=== PATIENT | female | born 1950 | race Two or more races ===

== ENCOUNTER 2016-07-02 15:45 | Inpatient (IN) | payer MEDICAID ==
[~2016-07-02] VITALS: Ht 152.4 cm; Wt 67.2 kg
--- NOTE | ~2016-07-02 | HP ---
PATIENT'S NAME: [facility] AGE: 65 Y [address] ROOM: [place] [address] LOCATION: GPCU ADMIT DATE: 07/02/2016 History & Physical DISCHARGE DATE: FAMILY PHYSICIAN: JOSSIE CURTIS ATTENDING PHYSICIAN: PENNY LACEY DATE OF SERVICE: CHIEF COMPLAINT: Abnormal blood work. HISTORY OF PRESENT ILLNESS: This is a 65-year-old Ecuadorean female who came into the [facility] 2 weeks ago and was taken into [facility] to visit with a doctor even though the patient says she did not have any complaint prior to going into see the doctor and blood work which was done there revealed an abnormal renal panel. Based on this, the patient was transferred to Dr. Curtis the transport medic to see the patient at the outside clinic. After the patient was seen at the outside clinic and a repeat renal panel was done, which she was told shows CKD stage 4. The patient said that doctors in [place] had told her 3 years ago that she had chronic kidney problem and she was placed on some medications for that. The patient denies any medical complaints or problems prior to going into the [facility] for blood work. Right now, she denies fever, denies nausea or vomiting, denies any confusion, denies any dizziness, headache, neck pain, or back pain. She denies urinary symptoms. Denies diarrhea. She reports that she urinates pretty regularly with good volume of urine. She denied any fall at home. REVIEW OF SYSTEMS: The 13 elements of review of systems were asked and as documented in the HPI. The others are negative. PAST MEDICAL HISTORY: Includes CKD of unknown stage, essential hypertension. PAST SURGICAL HISTORY: Includes hernia repair. SOCIAL HISTORY: She denies history of smoking. Denies use of alcohol. FAMILY HISTORY: She reports that she does not remember at what age her parents . PHYSICAL EXAMINATION: PATIENT'S NAME: [facility] AGE: 65 Y [address] ROOM: [place] [address] LOCATION: GPCU ADMIT DATE: 07/02/2016 History & Physical DISCHARGE DATE: FAMILY PHYSICIAN: JOSSIE CURTIS ATTENDING PHYSICIAN: PENNY LACEY VITAL SIGNS: In PCU, temperature 98.2, pulse 80, respiratory rate 16, oxygen saturation 98% on room air, and blood pressure 163/77. GENERAL: The patient is alert, awake, and oriented x3. Looks pretty good. Does not look like somebody that has a very, very abnormal renal panel. There are no flapping tremors. Pleasant. NEUROLOGIC: Cranial nerves 2 through 12 are intact bilaterally. Sensory is intact bilaterally. Power is 5/5 in all the extremities. HEENT: Normocephalic, atraumatic. Pupils equal and reactive to light bilaterally. Pharynx is normal. Mucosa is moist. NECK: Supple. No area of tenderness. No lymphadenopathy. EARS: No obvious ear discharge or drainage. CARDIOVASCULAR: Normal S1 and S2. Regular rate and rhythm. CHEST: Clear to auscultation bilaterally. ABDOMEN: Soft, nondistended. No area of tenderness. No palpable organomegaly. EXTREMITIES: There is no joint swelling, erythema, or tenderness. SKIN: No rash or skin breakdown. LABORATORY DATA: Labs which was repeated today in the Renal Clinic, sodium 143, potassium 6.2, chloride 115, CO2 15, calcium 7.4, creatinine 9.0, BUN 105, glucose 105, albumin 2.9, and phosphorus 6.4. ASSESSMENT AND PLAN: This is a 65-year-old female who comes in with abnormal renal panel. 1. Chronic kidney disease, stage 4. Management per Renal team, the patient is going to be on bicarb and on Kayexalate, renal panel every 6 hours, to check the note and the order of plan which was done by Dr. Curtis. Please note, present on admission. 2. Hyperkalemia, present on admission. The patient is going to get Kayexalate and also is going to get some insulin and calcium gluconate. Present on admission. 3. High anion gap metabolic acidosis, secondary to chronic kidney disease, stage 4. The patient is going to be on bicarb drip. Present on admission. 4. Essential hypertension, stable. We will start the patient on some Norvasc. Line of management was explained to the patient through her granddaughter who speaks Nauruan and she had no questions at this time. PENNY LACEY MD PATIENT'S NAME: [facility] AGE: 65 Y [address] ROOM: [place] [address] LOCATION: [facility] ADMIT DATE: 07/02/2016 History & Physical DISCHARGE DATE: FAMILY PHYSICIAN: JOSSIE CURTIS ATTENDING PHYSICIAN: PENNY LACEY/brook /[id number] D: [id number] T: [id number] HISTORY & PHYSICAL
--- NOTE | ~2016-07-02 | DS ---
PATIENT'S NAME: [facility] AGE: 65 Y [address] ROOM: [id number] [place] [address] LOCATION: GPCU ADMIT DATE: 07/02/2016 Discharge Summary DISCHARGE DATE: 07/08/2016 FAMILY PHYSICIAN: JOSSIE NAILS ATTENDING PHYSICIAN: Duy Merrill PRIMARY DIAGNOSES: 1. Chronic kidney disease, stage IV. 2. Hyperkalemia. 3. Hyperphosphatemia. 4. Essential hypertension. PRINCIPAL PROCEDURE: Done for the patient includes a right internal jugular tunneled dialysis catheter placement by Radiology. LABORATORY DATA: On admission, sodium was 143, prior to discharge was 134; creatinine on admission was 9.2, prior to discharge was 4.6; BUN on admission was 105, prior to discharge was 32; glucose was 105; potassium on admission was 6.2, prior to discharge was 4.3; bicarb on admission was 15, prior to discharge was 24; and phosphorus on admission was 6.4, prior to discharge was 4.3. Magnesium was 2. INR was 1. UA: Leukocytes 25, nitrite negative, and wbc 0-2. Ionized calcium 3.4. RADIOLOGY: Ultrasound of the kidneys reports that chronic renal cortical atrophy and cholelithiasis. HOSPITAL COURSE: For history of present illness, please take a look at H and P which was done by Dr. Merrill. The patient was admitted to Progressive Care Unit, was essentially managed by the Renal team. The patient was put on bicarb drip, was observed to see if there will be significant improvement in the kidney function. However, after waiting for about for 4 days without much significant improvement in the kidney function, she ultimately went on to get a tunneled dialysis catheter placed and subsequently started dialysis. She had 3 dialysis sessions prior to discharge. Throughout the whole hospital stay, respiratory status was stable. She basically looked clinically good, better than what her renal function appeared to be on her blood work. Had no acute medical condition throughout her whole hospital stay. hotel office manager had touched base with [facility] regarding Medicaid approval and apparently the patient was a permanent resident of the [facility] and so had a social security number, so currently her Medicaid has been applied for and everything has been set up as per followup, passed to the family following up on the eventual approval of the Medicaid. On the day of discharge, the patient was in stable clinical condition, vital signs were stable, and she was discharged home. DISCHARGE INSTRUCTIONS: She is to follow up with her PCP in [place] and she PATIENT'S NAME: [facility] AGE: 65 Y [address] ROOM: [place] [address] LOCATION: GPCU ADMIT DATE: 07/02/2016 Discharge Summary DISCHARGE DATE: 07/08/2016 FAMILY PHYSICIAN: JOSSIE NAILS ATTENDING PHYSICIAN: Duy Merrill is to follow with the Renal Team in the clinic. Renal is to decide whether the patient will require a long-term hemodialysis. MEDICATIONS ON DISCHARGE: 1. Norvasc 10 mg p.o. daily, dose change. 2. PhosLo 667 mg p.o. 3 times daily. 3. Lopressor 12.5 mg p.o. twice daily, new medication. 4. Prilosec 20 mg p.o. q.h.s. MD DEANDRE PRAKASH/tapanl /[id number] d: 07/08/16 2149 t: 07/11/16 1630, DISCHARGE SUMMARY
[2016-07-02 16:36] LABS: ALBUMIN 2.9 gm/dL (3.5-5.0); PHOSPHORUS 6.4 mg/dL (2.5-4.9)
[2016-07-02 16:39] LABS: ANION GAP 19.2 (10.0-19.0); CALCIUM 7.4 mg/dL (8.5-10.5)
[2016-07-02 16:40] LABS: POTASSIUM 6.2 mEq/L (3.7-5.1)
[2016-07-02] MEDS ORDERED: [UNRECOGNIZED DRUG - OTHER] PO ×2 (18:29→18:30)
[2016-07-02] MEDS ORDERED: AMLODIPINE-OLM1 EAC2 PO (18:31)
[2016-07-02] MEDS ORDERED: VITAMIN IM (18:33)
[2016-07-02] MEDS ORDERED: PRILOSEC20 MG PO (19:03)
--- NOTE | 2016-07-02 19:37 | NUR ---
65 Y/O FEMALE ADMITTED FOR HYPERKALEMIA & STAGE IV RENAL FAILURE. PT JUST CAME FROM [place] 2 WEEKS AGO. FAMILY STATES THAT SINCE SHE HAS BEEN HERE SHE HAS C/O ALWAYS BEING OR FEELING COLD. PT DENIES ANY SOB OR CHEST PAIN. PT IS A&OX3, AMBULATES WELL. ALLERGIES - NO KNOWN MEDICATION ALLERGIES MEDICAL & SURGICAL HISTORY - UMBELICAL HERNIA REPAIR. HYPERTENSION, JOINT STIFFNESS & ARTHRITIS, GERD, HEARTBURN, HEMORRHOIDS, URINARY FREQUENCY & NOCTURIA, DEPRESSION SINCE HER A FEW YEARS AGO. ANEMIA. PT IS A NON SMOKER & NON DRINKER. PT FAMILY IS VERY SUPPORTIVE & BEDSIDE REPORT GIVEN TO PT PRIMARY CARE NURSE DON RN ADM EDUCATION COMPLETED WITH PT AND FAMILY
[2016-07-02 22:35] LABS: ALBUMIN 2.4 gm/dL (3.5-5.0); CALCIUM 7.6 mg/dL (8.5-10.5); PHOSPHORUS 5.7 mg/dL (2.5-4.9)
[2016-07-02 22:41] LABS: CREATININE 8.7 mg/dL (0.5-1.1)
--- NOTE | 2016-07-03 05:08 | NUR ---
A/O. VIETNAMESE SPEAKING ONLY. HR 60-80s. SBP 160-170s. AFEBRILE. ROOM AIR. KAYEXCELATE GIVEN WITH RESULTS. D50 AND 10UNIT INSULIN GIVEN. 2GM CA GLUCONATE GIVEN. BICARB 1L BOLUS GIVEN CONTINOUS RATE OF 125ML/HR. K+ AT 2200 5.0. ARELLANO INSERTED WITH 900ML UOP. UP TO BATHROOM SBA. DENIES PAIN.
[2016-07-03 05:52] LABS: BASOPHIL # 0.1 K/uL (0.0-0.2); BASOPHIL % 0.7 %; EOSINOPHIL # 0.1 K/uL (0.0-0.5); EOSINOPHIL % 1.6 %; HEMATOCRIT 31.9 % (33.0-46.0); HEMOGLOBIN 10.5 g/dL (10.0-15.0); IMMATURE GRANULOCYTE % 0.4 %; LYMPHOCYTE # 1.3 K/uL (0.8-4.0); LYMPHOCYTE % 18.3 %; MCH 30.7 pg (27.0-34.0); MCHC 32.9 gm/dL (32.0-36.5); MCV 93.3 fl (83.0-98.0); MONOCYTE # 0.6 K/uL (0.0-1.0); MONOCYTE % 9.1 %; NEUTROPHIL # (ANC) 4.9 K/uL (1.8-7.8); NEUTROPHIL % 69.9 %; NRBC % 0 /100WBC (0-0.00); PLATELET COUNT 208 K/uL (150-450); RBC 3.42 M/uL (3.50-5.50); RDW-CV 15.1 % (11.9-14.6); WBC 7.1 K/uL (4.0-11.0)
[2016-07-03 06:07] LABS: ALBUMIN 2.2 gm/dL (3.5-5.0); ANION GAP 13.3 (10.0-19.0); PHOSPHORUS 6.1 mg/dL (2.5-4.9); POTASSIUM 4.3 mMol/L (3.7-5.1)
[2016-07-03 06:10] LABS: CALCIUM 7.1 mg/dL (8.5-10.5); CREATININE 8.2 mg/dL (0.5-1.1)
[2016-07-03 11:47] LABS: BILIRUBIN URINE NEGATIVE (NEGATIVE); BLOOD URINE 10 /UL (NEGATIVE); COLOR URINE STRAW (YELLOW); GLUCOSE URINE 100 mg/dL (NEGATIVE); KETONE URINE NEGATIVE (NEGATIVE); LEUKOCYTES URINE 25 /UL (NEGATIVE); NITRITE URINE NEGATIVE (NEGATIVE); PROTEIN URINE 100 mg/dL (NEGATIVE); TURBIDITY URINE CLEAR (CLEAR); UROBILINOGEN URINE NORMAL (NORMAL)
[2016-07-03 11:54] LABS: WBC URINE 0-2 #/HPF (NEGATIVE)
[2016-07-03 11:55] LABS: BACTERIA URINE NEGATIVE (NEGATIVE); EPITHELIAL URINE RARE #/HPF (NEGATIVE)
--- NOTE | 2016-07-03 16:04 | NUR ---
Significant Event: VSS AND RA. TYLENOL X1 THIS AM FOR DIEGO, WITH RELIEF. NA BICARB GTT D/C'D AND NACL RUNNING AT 50 MLS/HR X1 LITER THEN SALINE LOCK. Q6H RENAL PANELS D/C'D AND TO CHECK DAILY. ARELLANO PATENT WITH 1400 MLS UOP, HAD 1 BM. URINE SENT FOR LABS PER DR. NAILS. MANY FAMILY AT BEDSIDE AND ASSIST WITH TRANSLATION. REPOSITIONS SELF FREQUENTLY. Follow up: CONTINUE PLAN OF CARE; MONITOR RENAL LABS.
--- NOTE | 2016-07-04 03:52 | NUR ---
Significant Event: VSS on RA. Afebrile. SBP's 103's-150's. HR's in 60-80's. No complaints of pain. IV to L) forearm with NaCl running at 50 mls/hr x1 then SL. Bright patent with 1000 ml UOP. Speaks no Citizen Of [place]. Family at bedside to assist with translation. Repositions self frequently. 1 BM this shift. Follow up: Watching creatinine for next 2 days then consulting for dialysis.
[2016-07-04 06:55] LABS: ALBUMIN 2.1 gm/dL (3.5-5.0); POTASSIUM 4.4 mMol/L (3.7-5.1)
[2016-07-04 06:57] LABS: ANION GAP 15.4 (10.0-19.0); CALCIUM 6.6 mg/dL (8.5-10.5)
--- NOTE | 2016-07-04 16:46 | NUR ---
Significant Event: VSS AND RA. AFEBRILE. DENIES PAIN. ARELLANO D/C'D AT 1130 WITH 700 MLS UOP AND HAS VOIDED X1 THIS AFTERNOON FOR 150 MLS POST ARELLANO REMOVAL. 1 REPORTED BM. UP TO SHOWER AND SITS AT EDGE OF BED. FAMILY ASSIST WITH TRANSLATION AND CARES; PO INTAKE ENCOURAGED-STARTED ENSURE TID WITH MEALS; FAMILY STATES THAT SHE IS A PICKY EATER AND THEY BROUGHT IN SOME FOOD FOR HER. AMBULATES WITH 1A, UNSTEADY. Follow up: CONTINUE PLAN OF CARE; INCREASE ACTIVITY.
[2016-07-05 03:52] LABS: BASOPHIL # 0.1 K/uL (0.0-0.2); BASOPHIL % 0.5 %; EOSINOPHIL # 0.2 K/uL (0.0-0.5); EOSINOPHIL % 1.7 %; HEMOGLOBIN 10.9 g/dL (10.0-15.0); IMMATURE GRANULOCYTE % 0.3 %; LYMPHOCYTE # 1.1 K/uL (0.8-4.0); MCH 30.8 pg (27.0-34.0); MCHC 32.1 gm/dL (32.0-36.5); MONOCYTE # 0.8 K/uL (0.0-1.0); MONOCYTE % 8.1 %; MPV 9.3 fl (9.4-12.4); NEUTROPHIL # (ANC) 7.3 K/uL (1.8-7.8); NEUTROPHIL % 77.4 %; NRBC % 0 /100WBC (0-0.00); PLATELET COUNT 205 K/uL (150-450); RBC 3.54 M/uL (3.50-5.50); RDW-CV 14.7 % (11.9-14.6); WBC 9.4 K/uL (4.0-11.0)
--- NOTE | 2016-07-05 03:54 | NUR ---
Significant Event: Patient speaks no Guinean. Family at bedside to translate. VSS on RA. Afebrile. SBP's in 130-140's. Complaints of pain to R) great toe. Tylenol at 1900 and 0230 with relief. Ambulates with 1A. IV to L) forearm SL and flushes well. 650ml UOP. Repositions self frequently. Follow up: Possibly discharge home today based on creatinine.
[2016-07-05 04:05] LABS: ALBUMIN 2.2 gm/dL (3.5-5.0); ANION GAP 16.4 (10.0-19.0); PHOSPHORUS 5.1 mg/dL (2.5-4.9); POTASSIUM 4.4 mMol/L (3.7-5.1)
[2016-07-05 04:06] LABS: CALCIUM 6.6 mg/dL (8.5-10.5); CREATININE 7.9 mg/dL (0.5-1.1)
[2016-07-05 11:49] LABS: INR - (THERAPEUTIC) 1.02 (0.92-1.07); PROTIME 10.7 SECONDS (9.8-11.4)
--- NOTE | 2016-07-05 13:38 | NUR ---
Reviewed pt chart and spoke with Shayna Jerry APRN before talking with patient and 2 sons at bedside. Lives in [place] with son. Per H&P they reported has been visiting for 2 weeks, Shayna told me they told her has lived here 15 years. At some point needing dialysis. Explained to them that if not a [place] resident, then will not be able to get insurance to qualify for outpt dialysis and no outpt dialysis center will accept her for dialysis in [place], or that we are aware of in the [place] so will need to go back to country where she is a citizen to get dialysis. Son reports she has lived here for 15 years and has a social security number and that there is a community health nurse supervisor who is helping her and says she will qualify for Medicare or Medicaid and that she helped pt apply for Medicaid. Gave me social security number [phone] and 1950. Said I can call community health nurse supervisor to get more information and I made copy of her card, is Elvia Calderon, Migrant Education Band Aid Machine Operator [phone] or [phone]. Called and left her a message to call me back. I called Marion with [facility] [address] and discussed with her, she ran social security number in Medicaid system and says Medicaid pending. Says that is no guarantee Medicaid will be approved. Says you have to be a resident for 5 years before you qualify for Medicaid so would have to see resident card to know when became a resident. Asked her what we can do to expidite this to speed up the process as pt is going to need dialysis. She is going to check and see if they can call directly to see what is needed next or if she will have to get a consent form from patient to call and call me back. She said likely next step will be they have to get income information back to Medicaid but not sure if Medicaid has requested that or not. Told her these people are going to need direction to get through the system and we need to help them. Will follow.
--- NOTE | 2016-07-05 17:05 | NUR ---
Significant events: Patient is alert and oriented x 3. VSS. Heart rates 69-81. SBP's 136-149. Denies pain. Denies shortness of breath. Good appetite. Lungs clear and diminished on room air. Left arm forearm IV saline locked. Spoke with care management today, family interprets and use of MILAN Total intake of 720 mL; total output of 350 mL + 1 moderate unmeasurable void. BM x 1 today. Follow up: NPO after midnight for line placement in AM. Hold heparin tonight and tomorrow until after line placed. Accurate I & O's.
--- NOTE | 2016-07-06 03:16 | NUR ---
Significant Event: Patient speaks no Angolan. Family at bedside to translate. VSS on RA. SBP's in 130-140's. Afebrile. No complaints of pain this shift. Ambulates with SBA. NPO since midnight for hemodialysis line placement today. Care management involved in case. IV to L) inner forearm is SL. Follow up: Hemodialysis line placement today at 11am.
[2016-07-06 06:05] LABS: ANION GAP 15.6 (10.0-19.0); POTASSIUM 4.6 mMol/L (3.7-5.1)
[2016-07-06 06:06] LABS: CALCIUM 7.1 mg/dL (8.5-10.5)
--- NOTE | 2016-07-06 14:26 | NUR ---
Talked with Aditi in the [facility] office re:patients Medicaid status. She tells me that she did talk with the Liaison and they are waiting on Fallon's son's income and pay stubs in order to complete the Medicaid application. Tamia was going to keep following up on the status of that. I also ran into Shayna Oden in the hallway and updated her to this as well. CM to continue to follow and assist.
--- NOTE | 2016-07-06 16:21 | NUR ---
Significant Event: pt went for dialysis tunnelled line placement this am and then went to dialysis after for 2hrs, had 1liter off. Pt to have dialysis again in am for 3hrs at 8am. Pt feels ok after today, tylenol for sore of line r) chest. Pt granddaughter here with her. Standby to bathroom. Follow up:
--- NOTE | 2016-07-07 04:48 | NUR ---
Significant Event: Patient speaks no Portuguese. Family at bedside to translate. Up with SBA. SBP's in 130's-140's. HR's 60-70. Tunnelled line placed to R) chest yesterday. Shallow drainage. Complaints of pain to site treated with tylenol last at 2106. 1L off at dialysis yesterday, will go to dialysis again today. IV to R) forearm SL. Follow up: Dialysis again at 8 am for 3 hours.
[2016-07-07 09:43] LABS: ALBUMIN 2.5 gm/dL (3.5-5.0); ANION GAP 16.4 (10.0-19.0); CALCIUM 7.5 mg/dL (8.5-10.5); PHOSPHORUS 5.1 mg/dL (2.5-4.9); POTASSIUM 4.4 mMol/L (3.7-5.1)
[2016-07-07 09:44] LABS: CREATININE 6.4 mg/dL (0.5-1.1)
--- NOTE | 2016-07-07 12:07 | NUR ---
A - PT SCREENED D/T LOS. DIALYSIS STARTED. STAGE IV CKD. HT: 60" WT: 149# BMI: 29.1 LABS: GLU 125, BUN/CR 57/6.4, ALB 2.5, PHOS 5.1. MEDS: PHOSLO, PROTONIX DIET: RENAL. INTAKE: 50-100% - MEALS SMALL. ENSURE TID NEEDS: [id number] KCAL (30-35 KCAL/KG IBW), 54-59 (1.2-1.3 G/KG IBW), 1350 ML FLUID (1 ML/KG) D - INADEQUATE NUTRIENT INTAKE R/T DECREASED APPETITE AEB MEAL SELECTIONS. I - GOAL FOR INTAKE TO MEET AT LEAST 75% OF NEEDS. WILL CONTINUE ENSURE TID M/E - WILL MONITOR INTAKE F/U IN 3-5 DAYS.
--- NOTE | 2016-07-07 12:50 | NUR ---
Call from Shayna Oden to see if I had any further updates on the Medicaid status. I let her know at this time, I didn't know anything more than what I did yesterday. Told her I would call Tamia and Marion with the [facility] dept. to see if they heard anything further either and then get back to her. I called down to the [facility] office, talked with Tamia, she states that when she talked with the [facility] worker, a Medicaid application had been filed, but they were waiting on her son, Julissas pay stubs/proof of income to finish the applicatoin and to her knowledge that had not been done yet. She was going to check with Blessing to see if she would be willing to call Eveline's son and see if he had brought this in or not yet and then update me once she knew more. In the meantime, I did try to call get more information from Elvia Calderon, Migrant Education Can Filling Room Sweeper. I called her at both the numbers we had on file, (VM left) or [phone](busy signal). I also stopped by Eveline's room but she had just gotten back from dialysis and no family was in the room. I updated Shayna S. to all of the above. Shayna tells me that the plan will most likely be for Eveline to dismiss tomorrow to home and she can either go back to [place] and do dialysis there or continue to work on the Medicaid application with her sons in order for that to be done so she can dialysis here in the [facility]. Shayna even told me that she told family she would be more than happy to do a MD to MD with someone in [place] if that is what route family would like to go. I let Shayna know that I would update her to anything else that came up. I did leave a VM with Fabienne to see if she could interpret for me later. Fabienne was gone so I did call Lee Ann and she is going to come and talk with Eveline and I later today. CM to continue to follow and assist.
--- NOTE | 2016-07-07 17:25 | NUR ---
PATIENT TO DIALYSIS TODAY. AMBULATED SHORT DISTANCES WITH STAND BY ASSIST, TOLERATED WELL WITH NO C/O PAIN, NO LIGHTHEADEDNESS. FAMILY AT BEDSIDE, TRANSLATING FOR PATIENT. HOSPITAL MEMBERSHIP COORDINATOR UTILIZED TODAY ALSO.
--- NOTE | 2016-07-08 04:30 | NUR ---
A/O, vss on ra, afebrile. pt states she voided at least 5x throughout the night.sba. denies pain. Plan: HD today, ?placement
[2016-07-08 04:55] LABS: ALBUMIN 2.3 gm/dL (3.5-5.0); ANION GAP 14.3 (10.0-19.0); CALCIUM 7.9 mg/dL (8.5-10.5); PHOSPHORUS 4.3 mg/dL (2.5-4.9); POTASSIUM 4.3 mMol/L (3.7-5.1)
[2016-07-08 05:02] LABS: CREATININE 4.6 mg/dL (0.5-1.1)
[2016-07-08] MEDS ORDERED: NORVASC10 MG PO (13:40)
[2016-07-08] MEDS ORDERED: LOPRESSOR25 MG PO (13:41)
[2016-07-08] MEDS ORDERED: PHOSLO667 MG PO (13:41)
--- NOTE | 2016-07-08 14:18 | NUR ---
Called and left voicemail for ZUNILDA Richardson to call me back re: clarifying pt end stage renal disease and need for chronic dialysis vs outpt monitoring and followup for future need for dialysis. Waiting call back. Talked with Dr Merrill outside pt room, he said they do not know if will need chronic dialysis yet, that pt will followup with renal doctor next week as an outpt, discharging home today. Lee Ann, industrial maintenance repairer helper and I talked with patient, son and granddaughter at bedside. Son asked plan for his mom and I let him know what Dr Merrill told me and he is okay with that. Explained to him that hopefully his mom won't need dialysis for a long time, and that if Medicaid is approved before needing dialysis, they can likely get that set up as an outpt. Explained that if needing dialysis before Medicaid gives an answer, then may need to be admitted to the hospital again for that and to come up with a longer term plan. He voices understanding. Encouraged him to work with Elvia Calderon, the director of community services who is assisting them with Medicaid application, and Lee Ann gave him the phone number to Marion Reed, who can also check on Medicaid status and if there is anything further they need to provide before Medicaid gives their answer to application. He voices understanding. Also told them that if patient doesn't feel good, then she needs to seek medical attention at physician office or emergency room, they voice understanding. At this point we know that Medicaid application has been made, Tamia Reed checked this morning and status shows Medicaid pending, has not been assigned a biological technical officer yet to the application, but she will call her contact at Medicaid to see if they will expedite that, she had also talked with Elvia Calderon who is assisting family with this and she reports son brought her paystubs and financial information requested and she got that to [facility]. Per Tamia, application was made 10 days ago and the soonest she has seen Medicaid get approved is 20 days, could take 45 days after they get all the information they are requesting. Tamia had pt sign consent form so Tamia or Marion Reed can continue to check on status and assist them as well with the application process.
--- NOTE | 2016-07-08 17:04 | NUR ---
DISCHARGE: A/O X3. DENIES PAIN. DIALYSIS THIS AM, 800 ML REMOVED. RIGHT SUBCLAVIAN TUNNELED DIALYSIS LINE. LEFT FA IV DC'D. PT BELGIAN SPEAKING ONLY, INTERPRETOR USED FOR DISCHARGE INSTRUCTIONS. MEDICATION CHANGES AND NEW MEDICATIONS DISCUSSED. CARE OF HD LINE REVIEWED. F/U APPOINTMENTS DISCUSSED. VSS. UP AD ASHLI. FAMILY PRESENT AT TIME OF INSTRUCTIONS. TAKEN TO [facility] BY JAEL @ [id number].
[2016-10-25] MEDS ORDERED: VITAMIN D-32000 UNI1 PO (15:08)
[2016-10-25] MEDS ORDERED: TYLENOL EXTRA500 MG PO (15:11)
== END 2016-07-08 14:50 | disposition disaster alternative care site (69) | DRG 683 ==
LOC: GRAD 15:45 → GPCU 16:44
PROVIDERS: Family Medicine; Internal Medicine Nephrology; Nurse Practitioner; ADMIT Hospitalist
PROC: 05HM33Z Insertion of Infusion Device into Right Internal Jugular Vein, Percutaneous Approach (ICD-10-PCS; principal; 2016-07-05)
PROC: B543ZZA Ultrasonography of Right Jugular Veins, Guidance (ICD-10-PCS; 2016-07-05)
PROC: 5A1D60Z (ICD-10-PCS; 2016-07-06)
DX: N17.9 Acute kidney failure, unspecified (principal); E87.2 Acidosis; E83.39 Other disorders of phosphorus metabolism; E87.5 Hyperkalemia; I12.9 Hypertensive chronic kidney disease with stage 1 through stage 4 chronic kidney disease, or unspecified chronic kidney disease; Z23 Encounter for immunization; K80.20 Calculus of gallbladder without cholecystitis without obstruction; N18.4 Chronic kidney disease, stage 4 (severe)
CPT/HCPCS: C1750; J0610; J1644; J2250; J3010; J7030; J7060

== ENCOUNTER 2016-07-17 08:07 | Emergency (ER) | payer MEDICAID ==
--- NOTE | ~2016-07-17 | CON ---
PATIENT'S NAME: NORRIS OGRE [facility] AGE: 65 Y [address] ROOM: [place] [address] LOCATION: ED ADMIT DATE: 07/17/2016 Consultation DISCHARGE DATE: FAMILY PHYSICIAN: Lorenzo Gomez MD ATTENDING PHYSICIAN: Awais Correia DATE OF CONSULTATION: 07/17/2016 REFERRING PHYSICIAN: Awais Correia MD REASON FOR CONSULTATION: End-stage renal disease, need for renal replacement therapy. HISTORY OF PRESENT ILLNESS: A 65-year-old female with history of hypertension and end-stage renal disease, diagnosed about a week to 10 days back at [facility] when she had got a tunnel dialysis catheter placed and got three consecutive dialysis sessions; however, she does not have any medical insurance at this point, here at the [facility], visiting her son from [place]. She does not have any social security number, even we could not place her to any dialysis unit and she was encouraged to go back to [place] as soon as possible. However, she came to my office on 15 of July with a potassium of 6 and a bicarb of 14. The patient was encouraged to go to the emergency room immediately to get hemodialysis; however, the patient declined to do so for some personal issues; however, showed a couple of days later in the ER with complaining of lightheadedness, dizziness, and generalized weakness. Has no headache. No sinus congestion. No throat pain or neck pain. Denies any chest pain or shortness of breath. No cough. Potassium is still 5.9, and has significant acidosis, but she denied any nausea, vomiting, or diarrhea. Her urine output has dropped significantly since she has been started on dialysis. She denied any fever, chills, or sweats. Her tunnel dialysis catheter appears to be intact and no sign of insertion site infection or a tunnel infection. PAST MEDICAL HISTORY: 1. Hypertension. 2. End-stage renal disease. SURGICAL HISTORY: History of hernia repair about 14 years ago and history of tunnel dialysis catheter placement on last hospitalization. FAMILY HISTORY: Hypertension in mother and kidney failure also in mother. SOCIAL HISTORY: Nine children lives in [place], visiting her son here, does not have any health insurance. Never smoked tobacco. No history of alcohol or any IV drug use. REVIEW OF SYSTEMS: GENERAL: No fever. No chills or rigor. HEENT: No sore throat. No sinus congestion. CVS: No chest pain. No exertional shortness of breath. No leg swelling. RESPIRATORY: No shortness of breath. No cough. No wheezing. GENITOURINARY: No pain with urination. No increased frequency. No nocturia. GASTROINTESTINAL: No abdominal pain. No abdominal distention. No nausea or vomiting. NEUROLOGIC: No weakness. No seizures. SKIN: No rash. No itching. ALLERGIES: No seasonal allergy. No hayfever. ENDOCRINE: No heat intolerance. No cold intolerance. PSYCHIATRIC: No sadness. No crying spells. No history of panic attack.PATIENT'S NAME: NASIMA CHRISTIAN [facility] AGE: 65 Y [address] ROOM: [place], [place] [address] LOCATION: [facility] ADMIT DATE: 07/17/2016 Consultation DISCHARGE DATE: FAMILY PHYSICIAN: Lorenzo Gomez MD ATTENDING PHYSICIAN: Awais Correia PHYSICAL EXAMINATION: VITAL SIGNS: Blood pressure 130s over 50s, heart rate 70, respiratory rate 18, saturation 97% on room air. GENERAL: Not in apparent distress. HEAD: Moist mucous membranes. Bilateral PERRLA, EOMI. NECK: No JVD, thyromegaly or lymphadenopathy. CVS: S1 and S2 normal, regular rate and rhythm. No murmur, rub, gallop. CHEST: Bilateral air entry equal. No wheeze or rales. ABDOMEN: Soft, nontender, nondistended. Bowel sounds present. EXTREMITIES: No cyanosis, clubbing, jaundice. No dependent edema. MUSCULOSKELETAL: No limitation of range of motion. SKIN: No pallor, cyanosis, icterus. CONSTRUCTION TECHNICIAN: Alert and oriented x3. No gross findings. MEDICATION: Amlodipine 10 mg daily, PhosLo 667 mg one capsule two times a day with meals, metoprolol tartrate 25 mg half tablet twice daily. LABORATORY DATA: Lactate 0.6, troponin less than 0.04. CPK 70, hemoglobin 11.4, WBC 8.1, platelet 233. Chemistry: Sodium 140, potassium 5.9, chloride 109, bicarbonate 17, calcium 7, glucose 99, BUN 109, total protein 6.6, albumin 2.7, INR 0.98. No recent UA. CRP 0.32, TSH 8.050. ASSESSMENT: 1. End-stage renal disease. Does not have medical insurance and not getting dialysis regularly. 2. Hyperkalemia. 3. Metabolic acidosis with increased anion gap. 4. Hypertension for last 7 years. RECOMMENDATIONS: The patient will get emergent hemodialysis for hyperkalemia and metabolic acidosis. Has not received any dialysis session for the last 10 days. Although, there is no significant sign of volume overload, but the patient has significant biochemical abnormalities requiring an urgent hemodialysis. The patient was seen and examined on dialysis and got dialyzed on a 2 K bath for 4 hours with the goal ultrafiltrate of 2-3 liter. The patient has mentioned that her urine output has dropped significantly since initiation of dialysis. The patient again encouraged to go back to [place] or to move to [place] to get some health insurance, so that she can get regular hemodialysis. The patient has also been explained that not getting regular hemodialysis might be detrimental to her health and may cause serious complication including fluid overload, shortness of breath, pulmonary edema, arrhythmia, and possibly . The patient voiced understanding and she is planning to go back to [place] this weekend. We will continue PhosLo for hyperphosphatemia. For metabolic acidosis, we will start the patient on sodium bicarbonate tablets 650 mg p.o. three times a day. However, she does not have any health insurance and she has to buy out of pocket that medication. Regarding hyperkalemia, the patient has been explained about avoiding potassium rich diet and she needs regular dialysis as because of her kidney function is really suboptimal and at this point, the patient has been declared ESRD with GFR barely in the 4-5 range. PATIENT'S NAME: NORRIS GORE [facility] AGE: 65 Y [address] ROOM: [place] [address] LOCATION: [facility] ADMIT DATE: 07/17/2016 Consultation DISCHARGE DATE: FAMILY PHYSICIAN: Lorenzo Gomez MD ATTENDING PHYSICIAN: Awais Correia Thank you for allowing me to participate in this patient's care. We will closely monitor the patient's progress along with you. JOSSIE NAILS MD /modl /[id number] d: 07/18/16 1631 t: 07/23/16 1423, CONSULTATION REPORT
--- NOTE | ~2016-07-17 | ER ---
PATIENT'S NAME: NASIMA CHRISTIAN [facility] AGE: 65 Y [address] ROOM: [place] [address] LOCATION: ED ADMIT DATE: 07/17/2016 ER/Outpatient Report DISCHARGE DATE: FAMILY PHYSICIAN: Lorenzo Gomez MD ATTENDING PHYSICIAN: Awais Correia Time of Arrival: Time of Evaluation: Admission date and time documented in the medical record. I saw the patient at 0830 hours. CHIEF COMPLAINT: Weakness, generalized along with lightheadedness x2 days. HISTORY OF PRESENT ILLNESS: The patient is a 65-year-old female, who comes in with a 2-day history of lightheadedness, dizziness, and generalized weakness. She has no headache, eyes, ears, nose, throat, neck, or spine pain. No chest pain, shortness of breath. No cough. No abdominal pain, nausea, vomiting, or diarrhea. Makes some urine, but no urinary symptomatology. She was diagnosed with end-stage renal disease. Hemodialysis was done 3 days in a row about 10 days ago. She has not had dialysis for 10 days now. No fever, chills, or sweats. No fall or trauma. No joint or muscle swelling, redness, or pain. No skin eruptions or rash. No history of neurological changes, psychiatric issues, or endocrine problems. HOME MEDICATIONS: See attached medication list. ALLERGIES: NONE. SOCIAL HISTORY: Nonsmoker and nondrinker. SIGNIFICANT PAST MEDICAL HISTORY: 1. Hypertension. 2. End-stage renal disease, on hemodialysis. 3. Hyperkalemia. 4. Hypophosphatemia. 5. Cholelithiasis. 6. Gastroesophageal reflux. PAST SURGICAL HISTORY: Operations: 1. Dialysis catheter placement. PATIENT'S NAME: NASIMA CHRISTIAN [facility] AGE: 65 Y [address] ROOM: [place] [address] LOCATION: ED ADMIT DATE: 07/17/2016 ER/Outpatient Report DISCHARGE DATE: FAMILY PHYSICIAN: Lorenzo Gomez MD ATTENDING PHYSICIAN: Awais Correia 2. Herniorrhaphy. REVIEW OF SYSTEMS: All systems reviewed by me are negative with the exception of those discussed in the History of the Present Illness. PHYSICAL EXAMINATION: VITAL SIGNS: Temperature 97.0, tympanic; pulse 74, regular; respirations 20; blood pressure 151/69; and O2 saturation on room air is 98%. HEENT: Head; normocephalic. No abrasion, contusion, laceration, swelling of the scalp or face. Eyes; extraocular muscles intact. PERRL. Sclerae and conjunctivae are clear, nonicteric. Ears; clear TMs bilaterally. Nose; clear. Throat; clear. Mucous membranes dry. NECK: Negative. LUNGS: Clear. HEART: Regular. Pulses are palpable. ABDOMEN: Soft, nondistended, and nontender. Active bowel tones. No organomegaly or abnormal mass palpable. EXTREMITIES: Without peripheral edema, cyanosis, or deformity. NEUROLOGIC: Neurovascularly intact. SKIN: Clear. No skin eruptions or rash. LABORATORY DATA: CMS was normal except for an elevated potassium of 5.9, elevated BUN of 109, and elevated creatinine of 10.9 with a low GFR of 4. Calcium was low at 7.0, CO2 content was 17 with an anion gap at 19.9. CPK was 70. Point of care cardiac enzymes were normal. CRP was 0.32. TSH was 8.05. White count was 8100, 73 segs, 17 lymphs, 7 monos, 1 eo, 1 baso, hemoglobin is 11.4 with a hematocrit of 34.7, and platelet count is 233,000. Prothrombin time is 10.3 with an INR of 0.98. Lactate was 0.6. Procalcitonin was 0.07. IMPRESSION: 1. End-stage renal disease stage IV, on hemodialysis. 2. Hypertension. 3. Hyperkalemia with a potassium of 5.9. PLAN: Discussed the patient with Dr. Curtis, auricular acupuncturist. The patient will go up to dialysis here in the hospital. Further treatment and evaluation per Dr. Curtis. Discussion ensued with the patient concerning my findings and recommendations, she understands. PATIENT'S NAME: [facility] AGE: 65 Y [address] ROOM: [place] [address] LOCATION: [facility] ADMIT DATE: 07/17/2016 ER/Outpatient Report DISCHARGE DATE: FAMILY PHYSICIAN: Lorenzo Gomez MD ATTENDING PHYSICIAN: Awais Correia MD SDS/modl /[id number] d: 07/17/16 1519 t: 07/18/16 0610, OUTPATIENT REPORT
[~2016-07-17 08:07] MED LIST: AMLODIPINE-OLM1 EAC2 PO; LOPRESSOR25 MG PO; NORVASC10 MG PO; PHOSLO667 MG PO; PRILOSEC20 MG PO; VITAMIN IM; [UNRECOGNIZED DRUG - OTHER] PO
[2016-07-17 08:56] LABS: BASOPHIL # 0.1 K/uL (0.0-0.2); BASOPHIL % 0.7 %; EOSINOPHIL # 0.1 K/uL (0.0-0.5); EOSINOPHIL % 1.4 %; HEMATOCRIT 34.7 % (33.0-46.0); HEMOGLOBIN 11.4 g/dL (10.0-15.0); IMMATURE GRANULOCYTE % 0.5 %; LYMPHOCYTE # 1.4 K/uL (0.8-4.0); LYMPHOCYTE % 16.7 %; MCHC 32.9 gm/dL (32.0-36.5); MCV 94.3 fl (83.0-98.0); MONOCYTE # 0.6 K/uL (0.0-1.0); MONOCYTE % 7.3 %; MPV 8.7 fl (9.4-12.4); NEUTROPHIL % 73.4 %; NRBC % 0 /100WBC (0-0.00); PLATELET COUNT 233 K/uL (150-450); RBC 3.68 M/uL (3.50-5.50); RDW-CV 14.2 % (11.9-14.6); WBC 8.1 K/uL (4.0-11.0)
[2016-07-17 09:02] LABS: INR - (THERAPEUTIC) 0.98 (0.92-1.07); PROTIME 10.3 SECONDS (9.8-11.4)
[2016-07-17 09:22] LABS: ALBUMIN 2.7 gm/dL (3.5-5.0); ALK PHOS 112 IU/L (33-138); ALT 16 IU/L (12-78); AST 11 IU/L (10-40); CHLORIDE 109 mMol/L (96-110); CPK 70 IU/L (21-215); SODIUM 140 mMol/L (135-145); TOTAL BILIRUBIN 0.4 mg/dL (0.0-1.5); TOTAL PROTEIN 6.6 g/dL (6.0-8.4)
[2016-07-17 09:23] LABS: ANION GAP 19.9 (10.0-19.0); CO2 17 mMol/L (22-32); POTASSIUM 5.9 mMol/L (3.7-5.1)
[2016-07-17 09:24] LABS: BLOOD UREA NITROGEN 109 mg/dL (6-24); CREATININE 10.9 mg/dL (0.5-1.1); ESTIMATED GFR (MDRD EQUATION) 4
[2016-10-25] MEDS ORDERED: VITAMIN D-32000 UNI1 PO (15:08)
[2016-10-25] MEDS ORDERED: TYLENOL EXTRA500 MG PO (15:11)
== END 2016-07-17 10:05 | disposition disaster alternative care site (69) ==
LOC: GMED 08:07
PROVIDERS: Emergency Medicine
DX: I12.0 Hypertensive chronic kidney disease with stage 5 chronic kidney disease or end stage renal disease (principal); N18.6 End stage renal disease; E87.5 Hyperkalemia; K80.20 Calculus of gallbladder without cholecystitis without obstruction; K21.9 Gastro-esophageal reflux disease without esophagitis; E87.2 Acidosis; Z99.2 Dependence on renal dialysis; Z98.890 Other specified postprocedural states; Z79.899 Other long term (current) drug therapy
CPT/HCPCS: G0257; J1644

== ENCOUNTER 2016-07-20 08:01 | Emergency (ER) | payer MEDICAID ==
--- NOTE | ~2016-07-20 | ER ---
PATIENT'S NAME: NASIMA CHRISTIAN [facility] AGE: 65 Y [address] ROOM: [place] [address] LOCATION: [facility] ADMIT DATE: 07/20/2016 ER/Outpatient Report DISCHARGE DATE: 07/20/2016 FAMILY PHYSICIAN: Lorenzo Gomez MD ATTENDING PHYSICIAN: Awais Correia Admission date and time documented on the medical record. I saw the patient at 0810 hours. CHIEF COMPLAINT: Need for hemodialysis. HISTORY OF PRESENT ILLNESS: The patient is a 65-year-old female who presents to the emergency room for hemodialysis. The patient has chronic kidney disease. No acute problems voiced by the patient. HOME MEDICATIONS: See attached medication list. ALLERGIES: NONE. SOCIAL HISTORY: Nonsmoker, nondrinker. SIGNIFICANT PAST MEDICAL HISTORY: Hypertension; end-stage renal disease, on hemodialysis; hyperkalemia; hypophosphatemia; cholelithiasis; gastroesophageal reflux. OPERATIONS: Dialysis catheter placement; herniorrhaphy. REVIEW OF SYSTEMS: All systems reviewed by me are negative with the exception of those discussed in the history of present illness. PHYSICAL EXAMINATION: VITAL SIGNS: Temperature 97 tympanic, pulse 74, respirations 20, blood pressure 128/65, O2 saturation on room air is 98%. HEAD: Normocephalic. EYES, EARS, NOSE, AND THROAT: Clear. NECK: Negative. SPINE: Negative. LUNGS: Clear. Good air flow. No rales, rhonchi, or wheezes. PATIENT'S NAME: NASIMA CHRISTIAN [facility] AGE: 65 Y [address] ROOM: [place] [address] LOCATION: [facility] ADMIT DATE: 07/20/2016 ER/Outpatient Report DISCHARGE DATE: 07/20/2016 FAMILY PHYSICIAN: Lorenzo Gomez MD ATTENDING PHYSICIAN: Awais Correia HEART: Regular. Pulses are palpable. ABDOMEN: Soft, nontender. Good bowel tones. EXTREMITIES: Without peripheral edema, cyanosis, or deformity. NEUROVASCULAR: Intact. SKIN: Clear. IMPRESSION: End-stage renal failure, on hemodialysis. PLAN: The patient was sent to dialysis here in the hospital for hemodialysis. Then dismissed home. Observation. Activity as tolerated. Continue present home medications and care. Follow up with personal physician as needed. MD VALERIO RIOS/brook /[id number] d: 07/20/16 1537 t: 07/31/16 1811, OUTPATIENT REPORT
--- NOTE | ~2016-07-20 | CON ---
PATIENT'S NAME: NASIMA CHRISTIAN [facility] AGE: 65 Y [address] ROOM: [place] [address] LOCATION: [facility] ADMIT DATE: 07/20/2016 Consultation DISCHARGE DATE: 07/20/2016 FAMILY PHYSICIAN: Lorenzo Gomez MD ATTENDING PHYSICIAN: Awais Correia REFERRING PHYSICIAN: Awais Correia MD REASON FOR CONSULTATION: End-stage renal disease, need for dialysis. CHIEF COMPLAINT: ESRD need for dialysis. HISTORY OF PRESENT ILLNESS: This is a 65-year-old lady with history of hypertension and end-stage renal disease does not have any health insurance. Currently, visiting her son here in the [facility] presented to the ER for the need of dialysis. She has a tunnel dialysis catheter placed at [facility] few weeks back and the last hemodialysis was on Tuesday. She denied any chest pain or shortness of breath or any signs of fluid overload. No nausea, vomiting, or diarrhea. No significant acidosis or dyselectrolytemia. PAST MEDICAL HISTORY: 1. Hypertension. 2. End-stage renal disease. PAST SURGICAL HISTORY: 1. Hernia repair 14 years ago. 2. History of tunnel dialysis catheter placement on last hospitalization. FAMILY HISTORY: Hypertension in mother and kidney failure in mother. SOCIAL HISTORY: The patient lives in [place] visiting her son here. Does not have any healthy insurance. Never smoked tobacco. No history of alcohol abuse or IV drug abuse. REVIEW OF SYSTEMS: GENERAL: No fever. No chills or rigor. HEENT: No sore throat. No sinus congestion. CVS: No chest pain. No exertional shortness of breath. No leg swelling. RESPIRATORY: No shortness of breath. No cough. No wheezing. GENITOURINARY: No pain with urination. No increased frequency. No nocturia. GASTROINTESTINAL: No abdominal pain. No abdominal distention. No nausea or vomiting. NEUROLOGIC: No weakness. No seizures. SKIN: No rash. No itching. ALLERGIES: No seasonal allergy. No hayfever. ENDOCRINE: No heat intolerance. No cold intolerance. PSYCHIATRIC: No sadness. No crying spells. No history of panic attack. PATIENT'S NAME: NASIMA CHRISTIAN [facility] AGE: 65 Y [address] ROOM: [place] [id number] LOCATION: [facility] ADMIT DATE: 07/20/2016 Consultation DISCHARGE DATE: 07/20/2016 FAMILY PHYSICIAN: Lorenzo Gomez MD ATTENDING PHYSICIAN: Awais Correia PHYSICAL EXAMINATION: VITAL SIGNS: Blood pressure 110/70, which dropped to 80s/40s on dialysis, pulse rate 72, respiratory rate 18, and saturation 98% on room air. GENERAL: Not in apparent distress. HEAD: Moist mucous membranes. Bilateral PERRLA, EOMI. NECK: No JVD, thyromegaly or lymphadenopathy. CVS: S1 and S2 normal, regular rate and rhythm. No murmur, rub, gallop. CHEST: Bilateral air entry equal. No wheeze or rales. ABDOMEN: Soft, nontender, nondistended. Bowel sounds present. EXTREMITIES: No cyanosis, clubbing, jaundice. No dependent edema. MUSCULOSKELETAL: No limitation of range of motion. SKIN: No pallor, cyanosis, icterus. UI ENGINEER: Alert and oriented x3. No gross findings. MEDICATION: Amlodipine 10 daily, PhosLo 667 mg one tablet two times a day with meals, metoprolol tartrate 25 mg half tablet twice daily. LABORATORY DATA: Chemistry: Sodium 139, potassium 4.5, chloride 103, bicarbonate 21, BUN 67, creatinine 8.5, calcium 7.2, glucose 101. ASSESSMENT: 1. End-stage renal disease without medical insurance and does not get her dialysis regularly. 2. Hyperkalemia in the multiple previous admission. 3. Hypertension for last seven years; however, the patient was currently hypotensive while on dialysis. 4. Metabolic acidosis. RECOMMENDATION: The patient is seen and examined on dialysis tolerating dialysis well. However, the patient's blood pressure is marginal. We recommend discontinuing amlodipine for now. Continue sodium bicarbonate. The bicarbonate has started to go up slowly. We will continue on dialysis today on 2 K bath for 4 hours and we will remove about 1.5 L ultrafiltrate as she tolerates. The patient has been again encouraged to go back to [place] in need of regular hemodialysis. If she does not get regular hemodialysis that can be detrimental to her health and may cause serious complication including fluid overload, shortness of breath, pulmonary edema, arrhythmia, and even . The patient voiced understanding, but did not mention about her decision. Thank you for allowing me to participate in this patient's care. MD MAYRA LOO/brook /[id number] d: 07/21/16 0019 t: 07/23/16 1423, CONSULTATION REPORT
[2016-07-20 09:50] LABS: ALBUMIN 2.9 gm/dL (3.5-5.0); ANION GAP 19.5 (10.0-19.0); POTASSIUM 4.5 mMol/L (3.7-5.1)
[2016-07-20 09:53] LABS: CALCIUM 7.2 mg/dL (8.5-10.5); CREATININE 8.5 mg/dL (0.5-1.1)
[2016-10-25] MEDS ORDERED: VITAMIN D-32000 UNI1 PO (15:08)
[2016-10-25] MEDS ORDERED: TYLENOL EXTRA500 MG PO (15:11)
== END 2016-07-20 13:49 | disposition disaster alternative care site (69) ==
LOC: GMED 08:01
PROVIDERS: Internal Medicine Nephrology
DX: I12.0 Hypertensive chronic kidney disease with stage 5 chronic kidney disease or end stage renal disease (principal); N18.6 End stage renal disease; K80.20 Calculus of gallbladder without cholecystitis without obstruction; E87.5 Hyperkalemia; K21.9 Gastro-esophageal reflux disease without esophagitis; E83.39 Other disorders of phosphorus metabolism; Z99.2 Dependence on renal dialysis; Z98.890 Other specified postprocedural states; Z79.899 Other long term (current) drug therapy
CPT/HCPCS: G0257; J1644

== ENCOUNTER 2016-07-22 07:13 | Emergency (ER) | payer MEDICAID ==
--- NOTE | ~2016-07-22 | CON ---
PATIENT'S NAME: NASIMA CHRISTIAN [facility] AGE: 65 Y [address] ROOM: [place] [address] LOCATION: [facility] ADMIT DATE: 07/22/2016 Consultation DISCHARGE DATE: 07/22/2016 FAMILY PHYSICIAN: Lorenzo Gomez MD ATTENDING PHYSICIAN: Galdino Dc REASON FOR CONSULT: End-stage renal disease, need for dialysis. HISTORY OF PRESENT ILLNESS: This is a 65-year-old lady with history of hypertension, ESRD without any health insurance, showed up in the ER for need for dialysis, currently no complain, and last dialysis was on Tuesday. She has a tunnel dialysis catheter a few weeks back and getting dialysis on Tuesday and , as she shows up on those days on in the ER. She has been encouraged multiple times to go back to [place], but she is reluctant to do so. Denied any chest pain, shortness of breath, any signs of fluid overload, nausea, vomiting, or diarrhea. No significant acidosis or dyselectrolytemia. PAST MEDICAL HISTORY: Hypertension, end-stage renal disease. PAST SURGICAL HISTORY: Hernia repair 14 years ago, history of TDC placement. FAMILY HISTORY: Hypertension in mother and kidney failure in mother. SOCIAL HISTORY: The patient lives in [place] visiting her son here. Does not have any health insurance. Never smoked tobacco. No history of alcohol abuse or IV drug use. REVIEW OF SYSTEMS: GENERAL: No fever. No chills or rigor. HEENT: No sore throat. No sinus congestion. CVS: No chest pain. No exertional shortness of breath. No leg swelling. RESPIRATORY: No shortness of breath. No cough. No wheezing. GENITOURINARY: No pain with urination. No increased frequency. No nocturia. GASTROINTESTINAL: No abdominal pain. No abdominal distention. No nausea or vomiting. NEUROLOGIC: No weakness. No seizures. SKIN: No rash. No itching. ALLERGIES: No seasonal allergy. No hayfever. ENDOCRINE: No heat intolerance. No cold intolerance. PSYCHIATRIC: No sadness. No crying spells. No history of panic attack. PATIENT'S NAME: NASIMA CHRISTIAN [facility] AGE: 65 Y [address] ROOM: [place] [address] LOCATION: [facility] ADMIT DATE: 07/22/2016 Consultation DISCHARGE DATE: 07/22/2016 FAMILY PHYSICIAN: Lorenzo Gomez MD ATTENDING PHYSICIAN: Galdino Dc PHYSICAL EXAMINATION: VITAL SIGNS: Blood pressure 110/70, pulse is 70, respiratory rate 18, and saturation 98% on room air. GENERAL: Not in apparent distress. HEAD: Moist mucous membranes. Bilateral PERRLA, EOMI. NECK: No JVD, thyromegaly or lymphadenopathy. CVS: S1 and S2 normal, regular rate and rhythm. No murmur, rub, gallop. CHEST: Bilateral air entry equal. No wheeze or rales. ABDOMEN: Soft, nontender, nondistended. Bowel sounds present. EXTREMITIES: No cyanosis, clubbing, jaundice. No dependent edema. MUSCULOSKELETAL: No limitation of range of motion. SKIN: No pallor, cyanosis, icterus. WELL TESTER: Alert and oriented x3. No gross findings. MEDICATIONS: As per chart. LABORATORY DATA: Potassium 4.3, bicarbonate 24, BUN 52, creatinine 6.1. ASSESSMENT AND PLAN: 1. End-stage renal disease. She does not have any medical insurance and does not get regular hemodialysis. 2. Hyperkalemia, resolved. 3. Hypertension, well controlled. 4. Metabolic acidosis, resolved. RECOMMENDATION: 1. The patient is seen and examined on dialysis, tolerating dialysis well. Blood pressure appears to be better after changing antihypertensive regimen on last visit, bicarbonate has improved after starting of sodium bicarbonate, currently getting dialysis on 3K bath for 4 hours with a goal of 1 to 1.5 L fluid removal as tolerated. The patient has been explained again about going back to [place] to get regular hemodialysis and the patient was again explained the risk of serious complication that may happen with fluid overload, hyperkalemia, acidosis, or nephrosis, but the patient did not mention about her decision. Thank you for allowing me to participate in this patient's care. JOSSIE NAILS MD PATIENT'S NAME: AVELINA GOREA [facility] AGE: 65 Y [address] ROOM: [place] [address] LOCATION: [facility] ADMIT DATE: 07/22/2016 Consultation DISCHARGE DATE: 07/22/2016 FAMILY PHYSICIAN: Lorenzo Gomez MD ATTENDING PHYSICIAN: Galdino Dc/brook /[id number] d: 07/23/161611 t: 08/05/161610, CONSULTATION REPORT
--- NOTE | ~2016-07-22 | ER ---
PATIENT'S NAME: NASIMA CHRISTIAN [facility] AGE: 65 Y [address] ROOM: [place] [address] LOCATION: ED ADMIT DATE: 07/22/2016 ER/Outpatient Report DISCHARGE DATE: 07/22/2016 FAMILY PHYSICIAN: Lornezo Gomez MD ATTENDING PHYSICIAN: Galdino Dc CHIEF COMPLAINT: The patient needs dialysis. HISTORY OF PRESENT ILLNESS: The patient presents from her home by private vehicle for a previously scheduled dialysis. There has been some issues with her insurance and she requires dialysis and so she is coming through the emergency department today to be admitted for same. She has no complaints. I interviewed her with the little Mauritian that I know. She appears to be in good spirits and has no complaints and no pain. She denies fever or vomiting. PAST MEDICAL HISTORY: Documented on the record and have been reviewed by me. SOCIAL HISTORY: Documented on the record and have been reviewed by me. MEDICATIONS: Documented on the record and have been reviewed by me. ALLERGIES: DOCUMENTED ON THE RECORD AND HAVE BEEN REVIEWED BY ME. REVIEW OF SYSTEMS: All systems were reviewed and negative except as noted in the HPI. PHYSICAL EXAMINATION: VITAL SIGNS: Blood pressure is 155/82, pulse 74, respiratory rate is 16, temperature 97.8, SpO2 is 97% on room air. GENERAL: Age-appropriate female. No obvious pain or distress. Sitting upright on the exam table. Smiling and happy. NEURO: The patient moves all extremities well. Walks well. She has had no obvious speech impediment that I could detect. HEENT: Normocephalic and atraumatic. Eyes are PERRL. Oropharynx is clear. NECK: Supple. Trachea is midline. CHEST: Heart is regular rate and rhythm with no murmurs. LUNGS: Clear to auscultation bilateral. ABDOMEN: Soft, nontender, and nondistended. No masses or rebound. MUSCULOSKELETAL: Without obvious abnormality. PATIENT'S NAME: NASIMA CHRISTIAN [facility] AGE: 65 Y [address] ROOM: [place] [address] LOCATION: ED ADMIT DATE: 07/22/2016 ER/Outpatient Report DISCHARGE DATE: 07/22/2016 FAMILY PHYSICIAN: Lorenzo Gomez MD ATTENDING PHYSICIAN: Galdino Dc SKIN: Warm, dry, and intact. LABS AND X-RAYS: None were obtained. IMPRESSION: Need for dialysis. EMERGENCY DEPARTMENT COURSE: The patient was seen and evaluated. She was cleared for dialysis. She was taken to the dialysis suite where labs and dialysis were performed. She tolerated that well. Came back to the emergency department and was dispositioned home. Return as needed. MD MEGAN CESPEDES/brook /[id number] d: 07/23/16951 t: 08/03/16 1732, OUTPATIENT REPORT
[2016-07-22 08:08] LABS: ALBUMIN 2.8 gm/dL (3.5-5.0); ANION GAP 17.3 (10.0-19.0); CALCIUM 7.6 mg/dL (8.5-10.5); PHOSPHORUS 5.4 mg/dL (2.5-4.9); POTASSIUM 4.3 mMol/L (3.7-5.1)
[2016-07-22 08:10] LABS: CREATININE 6.1 mg/dL (0.5-1.1)
[2016-07-22 08:28] LABS: BASOPHIL # 0.1 K/uL (0.0-0.2); BASOPHIL % 0.6 %; EOSINOPHIL # 0.1 K/uL (0.0-0.5); EOSINOPHIL % 1.4 %; HEMATOCRIT 33.3 % (33.0-46.0); HEMOGLOBIN 10.7 g/dL (10.0-15.0); IMMATURE GRANULOCYTE % 0.4 %; LYMPHOCYTE # 1.8 K/uL (0.8-4.0); LYMPHOCYTE % 19.3 %; MCH 30.7 pg (27.0-34.0); MCHC 32.1 gm/dL (32.0-36.5); MCV 95.4 fl (83.0-98.0); MONOCYTE # 0.8 K/uL (0.0-1.0); MPV 9.6 fl (9.4-12.4); NEUTROPHIL # (ANC) 6.7 K/uL (1.8-7.8); NEUTROPHIL % 70.3 %; NRBC % 0 /100WBC (0-0.00); PLATELET COUNT 233 K/uL (150-450); RBC 3.49 M/uL (3.50-5.50); RDW-CV 13.4 % (11.9-14.6); WBC 9.5 K/uL (4.0-11.0)
[2016-10-25] MEDS ORDERED: VITAMIN D-32000 UNI1 PO (15:08)
[2016-10-25] MEDS ORDERED: TYLENOL EXTRA500 MG PO (15:11)
== END 2016-07-22 12:11 | disposition disaster alternative care site (69) ==
LOC: GMED 07:13
PROVIDERS: Internal Medicine Nephrology
DX: I12.0 Hypertensive chronic kidney disease with stage 5 chronic kidney disease or end stage renal disease (principal); N18.6 End stage renal disease; E87.5 Hyperkalemia; E87.2 Acidosis; Z98.890 Other specified postprocedural states; Z79.899 Other long term (current) drug therapy
CPT/HCPCS: G0257; J1644

== ENCOUNTER 2016-07-26 07:25 | Emergency (ER) | payer MEDICAID ==
--- NOTE | ~2016-07-26 | CON ---
PATIENT'S NAME: NASIMA CHRISTIAN [facility] AGE: 65 Y [address] ROOM: [place] [address] LOCATION: GMED ADMIT DATE: 07/26/2016 Consultation DISCHARGE DATE: 07/26/2016 FAMILY PHYSICIAN: Lorenzo Gomez MD ATTENDING PHYSICIAN: Galdino Dc DATE OF CONSULTATION: 07/26/2016 REASON FOR CONSULTATION: End-stage renal disease, need for dialysis. HISTORY OF PRESENT ILLNESS: This is a 65-year-old female, patient with a history of hypertension, ESRD without any health insurance, showed up in the ER for need for dialysis, currently no complaints. Her last dialysis was on of last week. She does have a tunnel dialysis catheter that was placed a few weeks back and has had been getting dialysis on Tuesday and weekly. She shows back up on those days in the emergency room. She has been encouraged multiple times to go back to [place], however, she is reluctant to do so. She is currently in process with getting Medicare or Medicaid coverage. Denied any chest pain, shortness of breath, any signs of fluid overload, nausea, vomiting, or diarrhea. No significant acidosis or dyselectrolytemia. PAST MEDICAL HISTORY: 1. Hypertension. 2. End-stage renal disease. PAST SURGICAL HISTORY: 1. Hernia repair, 14 years ago. 2. History of tunnel dialysis catheter placement. FAMILY HISTORY: Hypertension in mother, and kidney failure in her mother. SOCIAL HISTORY: The patient lives in [place] and has been visiting her son here in [place]. She does not have any health insurance. She never smoked tobacco. No history of alcohol abuse or IV drug use. REVIEW OF SYSTEMS: GENERAL: Denies fever, chills, or night sweats. EYES: No double vision or blurred vision. NOSE: No epistaxis or rhinorrhea. MOUTH: No gingival bleeding. THROAT: No sore throat or hoarseness. PATIENT'S NAME: NASIMA CHRISTIAN [facility] AGE: 65 Y [address] ROOM: [place] [address] LOCATION: GMED ADMIT DATE: 07/26/2016 Consultation DISCHARGE DATE: 07/26/2016 FAMILY PHYSICIAN: Lorenzo Gomez MD ATTENDING PHYSICIAN: Galdino Dc RESPIRATORY: Denies wheezing or hemoptysis. CARDIOVASCULAR: Denies chest pain or palpitations. GASTROINTESTINAL: Denies nausea, vomiting, or diarrhea. GENITOURINARY: Denies any dysuria. NEUROLOGIC: No weakness or seizures. SKIN: No new lesions or rashes. ALLERGIES: No seasonal allergies or hay fever. ENDOCRINE: No heat or cold intolerance. PSYCHIATRIC: No depression or anxiety. MEDICATIONS: As per chart. ALLERGIES: NO KNOWN MEDICAL ALLERGIES. LABORATORY DATA: Labs: Creatinine 8.9, potassium 4.5, and CO2 is 23. PHYSICAL EXAMINATION: VITAL SIGNS: Blood pressure 108/70, pulse is 70, respirations 18, and temperature 97.9. GENERAL: On exam, this is an alert, oriented, female who appears her approximate stated age, is in no acute distress. HEENT: Head; normocephalic and atraumatic. Eyes; pupils are equal and react briskly to light and accommodation. EOMs are intact. Nose; midline. Mouth; no gingival bleeding. NECK: Soft and supple. No JVD. No thyromegaly or lymphadenopathy. CARDIOVASCULAR: Regular rate and rhythm. No murmurs, rubs, or thrills. RESPIRATORY: Good breath sounds bilaterally with no wheezes or rales. EXTREMITIES: No signs of peripheral edema, clubbing, or cyanosis. MUSCULOSKELETAL: No limitation of range of motion. SKIN: No pallor, cyanosis, or icterus. NEUROLOGICAL: Cranial nerves 2 through 12 are grossly intact. ASSESSMENT AND PLAN: 1. End-stage renal disease. The patient does not have any medical insurance and does not get regular hemodialysis. The patient has been seen and assessed on dialysis, tolerating dialysis well. Blood pressures appear to be better after changing antihypertensive regimen on prior visits. Bicarbonate level has improved, and the patient is currently getting dialysis on a 3K bath for 4 hours with a goal of 1 to 1.5 L fluid removal as tolerated. The patient has been explained again about going back to [place] to get regular hemodialysis and the patient was again explained the risk of serious complication that may happen with fluid overload, PATIENT'S NAME: AVELINA GOREA [facility] AGE: 65 Y [address] ROOM: [place] [address] LOCATION: [facility] ADMIT DATE: 07/26/2016 Consultation DISCHARGE DATE: 07/26/2016 FAMILY PHYSICIAN: Lorenzo Gomez MD ATTENDING PHYSICIAN: Galdino Dc hyperkalemia, acidosis, or nephrosis, but the patient did not mention about her decision. Holly in Social Work was contacted regarding the patient's insurance process and verifying the patient's current status with Medicare or Medicaid. This patient has been seen and assessed by Dr. Curtis. Her care is being conducted in consultation with Dr. Curtis as well as Shayna Oden DNP, GEMA. In the interim, we will plan dialysis accordingly. SHAYNA ODEN DNP, GEMA FOR [facility] ILL[facility] Alberto JAMES CURTIS MD ENS/modl /[id number] d: 07/27/16 1616 t: 07/28/16 1311, CONSULTATION REPORT
--- NOTE | ~2016-07-26 | ER ---
PATIENT'S NAME: NASIMA CHRISTIAN [facility] AGE: 65 Y [address] ROOM: [place] [address] LOCATION: GMED ADMIT DATE: 07/26/2016 ER/Outpatient Report DISCHARGE DATE: 07/26/2016 FAMILY PHYSICIAN: Lorenzo Gomez MD ATTENDING PHYSICIAN: Galdino Dc CHIEF COMPLAINT: Need for dialysis. HISTORY OF PRESENT ILLNESS: The patient presents with no chief complaint. She needs dialysis. It has been arranged for her to come in for this. PAST MEDICAL HISTORY: Notable for renal failure, hypertension. REVIEW OF SYSTEMS: No complaints. PHYSICAL EXAMINATION: VITAL SIGNS: Blood pressure 164/74, pulse 74, respiratory rate 16, temperature 98.1, SpO2 is 96% on room air. GENERAL: An age-appropriate female. No obvious pain or distress, sitting upright in the exam table, happy disposition. NEUROLOGIC: Awake and alert. No obvious abnormalities. HEENT: Normocephalic, atraumatic. Eyes: PERRL. Oropharynx is clear. NECK: Supple. CHEST: Even and unlabored respirations. No rhonchi, wheezes, or rales. HEART: Regular rate and rhythm with no obvious murmurs. ABDOMEN: Benign. EXTREMITIES: Normal with no obvious abnormalities. SKIN: Warm, dry, and intact. LABORATORY DATA AND X-RAYS: None were obtained in the emergency department. IMPRESSION: Dialysis' request. IMPRESSION: The patient was seen and evaluated. She was deemed appropriate for dialysis. She proceeded to dialysis where labs were drawn. She completed dialysis and was discharged through the emergency department back home. Follow up as needed. PATIENT'S NAME: NASIMA CHRISTIAN [facility] AGE: 65 Y [address] ROOM: [place] [address] LOCATION: GMED ADMIT DATE: 07/26/2016 ER/Outpatient Report DISCHARGE DATE: 07/26/2016 FAMILY PHYSICIAN: Lorenzo Gomez MD ATTENDING PHYSICIAN: Galdino Dc MD MEGAN CESPEDES/modl /[id number] d: 07/26/16 2342 t: 08/03/16 1732, OUTPATIENT REPORT
[2016-07-26 08:46] LABS: BASOPHIL % 0.5 %; EOSINOPHIL # 0.1 K/uL (0.0-0.5); EOSINOPHIL % 1.4 %; HEMATOCRIT 31.3 % (33.0-46.0); HEMOGLOBIN 10.2 g/dL (10.0-15.0); IMMATURE GRANULOCYTE % 0.5 %; LYMPHOCYTE # 1.7 K/uL (0.8-4.0); LYMPHOCYTE % 19.8 %; MCH 30.7 pg (27.0-34.0); MCHC 32.6 gm/dL (32.0-36.5); MCV 94.3 fl (83.0-98.0); MONOCYTE # 0.7 K/uL (0.0-1.0); MONOCYTE % 8.1 %; MPV 9.8 fl (9.4-12.4); NEUTROPHIL % 69.7 %; NRBC % 0 /100WBC (0-0.00); PLATELET COUNT 248 K/uL (150-450); RBC 3.32 M/uL (3.50-5.50); RDW-CV 13.4 % (11.9-14.6); WBC 8.6 K/uL (4.0-11.0)
[2016-07-26 08:56] LABS: ALBUMIN 2.8 gm/dL (3.5-5.0); ANION GAP 19.5 (10.0-19.0); PHOSPHORUS 5.9 mg/dL (2.5-4.9); POTASSIUM 4.5 mMol/L (3.7-5.1)
[2016-07-26 09:00] LABS: CALCIUM 7.2 mg/dL (8.5-10.5); CREATININE 8.9 mg/dL (0.5-1.1)
--- NOTE | 2016-07-26 14:18 | NUR ---
June from dialysis informed me that Eveline has been coming in to get dialysis services 2x/week (usually on Mondays & ) due to having no payer source. Contact made with Tamia at [facility] and she states they have been reaching out to her family/sponsors weekly to keep the process on track. Because she is sponsored the sponsors need to turn in their paperwork which is where the process is currently at.
[2016-10-25] MEDS ORDERED: VITAMIN D-32000 UNI1 PO (15:08)
[2016-10-25] MEDS ORDERED: TYLENOL EXTRA500 MG PO (15:11)
== END 2016-07-26 12:44 | disposition disaster alternative care site (69) ==
LOC: GMED 07:25
PROVIDERS: Internal Medicine Nephrology
DX: I12.0 Hypertensive chronic kidney disease with stage 5 chronic kidney disease or end stage renal disease (principal); N18.6 End stage renal disease; Z99.2 Dependence on renal dialysis; Z98.890 Other specified postprocedural states
CPT/HCPCS: G0257; J1644; Q4081

== ENCOUNTER 2016-07-29 07:23 | Emergency (ER) | payer MEDICAID ==
--- NOTE | ~2016-07-29 | CON ---
PATIENT'S NAME: NASIMA CHRISTIAN [facility] AGE: 65 Y [address] ROOM: [place] [address] LOCATION: GMED ADMIT DATE: 07/29/2016 Consultation DISCHARGE DATE: 07/29/2016 FAMILY PHYSICIAN: PHYSICIAN, JESS ATTENDING PHYSICIAN: Radha Giraldo DATE OF CONSULTATION: 07/29/2016 REFERRING PHYSICIAN: Radha Giraldo MD REASON FOR CONSULTATION: End-stage renal disease, need for dialysis. HISTORY OF PRESENT ILLNESS: A 65-year-old lady with history of hypertension, ESRD, without any health insurance, comes up to the ER for need of a dialysis, currently has no significant complaint. Last dialysis was on Tuesday. Has a tunneled dialysis catheter placed a few weeks ago. Getting dialysis on Mondays and . She shows up on those days in ER. Encouraged multiple times to go back to [place], but reluctant to do so. No chest pain, shortness of breath, or any significant signs of fluid overload. Denied any nausea, vomiting, or diarrhea. Acidosis has significantly improved since starting sodium bicarb. PAST MEDICAL HISTORY: Hypertension, end-stage renal disease. PAST SURGICAL HISTORY: History of hernia repair 14 years ago, history of TDC placement. FAMILY HISTORY: Hypertension in mother and kidney failure in mother. SOCIAL HISTORY: Used to live in [place]. Visiting her son here. Does not have any health insurance. Never smoked tobacco. No history of alcohol abuse or IV drug use. REVIEW OF SYSTEMS: GENERAL: No fever. No chills or rigor. HEENT: No sore throat. No sinus congestion. CVS: No chest pain. No exertional shortness of breath. No leg swelling. RESPIRATORY: No shortness of breath. No cough. No wheezing. GENITOURINARY: No pain with urination. No increased frequency. No nocturia. GASTROINTESTINAL: No abdominal pain. No abdominal distention. No nausea or vomiting. NEUROLOGIC: No weakness. No seizures. SKIN: No rash. No itching. PATIENT'S NAME: NASIMA CHRISTIAN [facility] AGE: 65 Y [address] ROOM: [place] [address] LOCATION: ED ADMIT DATE: 07/29/2016 Consultation DISCHARGE DATE: 07/29/2016 FAMILY PHYSICIAN: PHYSICIAN, NO ATTENDING PHYSICIAN: Radha Giraldo ALLERGIES: No seasonal allergy. No hayfever. ENDOCRINE: No heat intolerance. No cold intolerance. PSYCHIATRIC: No sadness. No crying spells. No history of panic attack. PHYSICAL EXAMINATION: VITAL SIGNS: Blood pressure 110-120/70, pulse 70, respiratory rate 18, and saturation 98% on room air. GENERAL: Not in apparent distress. HEENT: Moist mucous membranes. Bilateral PERRLA, EOMI. NECK: No JVD, thyromegaly, or lymphadenopathy. CVS: S1 and S2 normal, regular rate and rhythm. No murmur, rub, gallop. CHEST: Bilateral air entry equal. No wheeze or rales. ABDOMEN: Soft, nontender, and nondistended. Bowel sounds present. EXTREMITIES: No cyanosis, clubbing, or jaundice. No dependent edema. MUSCULOSKELETAL: No limitation of range of motion. SKIN: No pallor, cyanosis, or icterus. FORM BUILDER HELPER: Alert and oriented x3. No gross findings. MEDICATIONS: As per the chart. LABORATORY DATA: Sodium 137, potassium 5.2, bicarbonate 25, BUN 78, creatinine 8.2, glucose 95, and calcium 7.5. Hemoglobin 10.2, WBC 8.6, and platelets 248. ASSESSMENT AND PLAN: 1. End-stage renal disease, without any medical insurance, does not get regular hemodialysis. 2. Hyperkalemia, resolved. 3. Hypertension, well controlled. 4. Metabolic acidosis, resolved. RECOMMENDATION AND PLAN: The patient is seen and examined on dialysis, tolerating dialysis well. Blood pressure is well controlled currently. Bicarbonate has improved significantly, current bicarbonate is 25. We will decrease the sodium bicarbonate from 650 t.i.d. to 650 b.i.d. The patient has been educated again about the need for regular hemodialysis and explained to go back to [place] to get regular hemodialysis and also explained about the risks of serious complication that may happen with fluid overload, hyperkalemia, acidosis, or even , but the patient is declining the option for going back to [place] or moving to another State where she can get some kind of assistance with her dialysis regimen. We will continue dialyzing for now on 2 K bath for 4 hours each time she shows up with average ultrafiltrate of 2-3 L or increasing as necessary. PATIENT'S NAME: NORRIS GORE [facility] AGE: 65 Y [address] ROOM: [place] [address] LOCATION: [facility] ADMIT DATE: 07/29/2016 Consultation DISCHARGE DATE: 07/29/2016 FAMILY PHYSICIAN: JESS MICHAELS ATTENDING PHYSICIAN: Radha Giraldo Thank you for allowing me to participate in this patient's care. ONEILEKH MD MAYRA WILBURN/modl /[id number] d: 07/30/162100 t: 08/05/161610, CONSULTATION REPORT
--- NOTE | ~2016-07-29 | ER ---
[facility] AGE: 65 Y [address] ROOM: [place] [address] LOCATION: ED ADMIT DATE: 07/29/2016 ER/Outpatient Report DISCHARGE DATE: 07/29/2016 FAMILY PHYSICIAN: PHYSICIAN, NO ATTENDING PHYSICIAN: Radha Rod Time of Arrival: 0723 hours. Time of Evaluation: 0750 hours. IDENTIFICATION: A 65-year-old female. CHIEF COMPLAINT: Dialysis. HISTORY OF PRESENT ILLNESS: The patient is a 65-year-old female with end-stage renal disease, in need of dialysis. She is without health insurance, so presents to the ER for dialysis. She currently has no complaints. No questions. No other problems or concerns. PAST MEDICAL HISTORY: ALLERGIES: NO KNOWN DRUG ALLERGIES. CURRENT MEDICATIONS: 1. Calcium acetate 667 mg t.i.d. 2. Metoprolol 25 mg 1/2 tablet daily. 3. Sodium bicarbonate 10 g t.i.d. MEDICAL PROBLEMS: Hypertension and end-stage renal disease. PRIOR SURGERIES: Hernia repair 14 years ago and history of tunneled dialysis catheter. FAMILY HISTORY: Mother with hypertension and kidney failure. SOCIAL HISTORY: The patient lives in [place]. Has been visiting her son in [place]. She does not have any health insurance. She apparently has been reluctant to return to [place] and is currently in the process of getting Medicare or Medicaid coverage. PATIENT'S NAME: NASIMA CHRISTIAN [facility] AGE: 65 Y [address] ROOM: [place] [address] LOCATION: ED ADMIT DATE: 07/29/2016 ER/Outpatient Report DISCHARGE DATE: 07/29/2016 FAMILY PHYSICIAN: PHYSICIAN, NO ATTENDING PHYSICIAN: Radha Rod SOCIAL HISTORY: Tobacco use, denies. Alcohol use, denies. Drug use, denies. REVIEW OF SYSTEMS: All systems reviewed and negative other than what is noted in the HPI. PHYSICAL EXAMINATION: VITAL SIGNS: Height 5 feet 4 inches, weight 67.8 kg, pulse 75, respirations 16, temperature 98.6, and saturations 96% on room air. GENERAL: A pleasant female, in no acute distress. HEENT: Unremarkable. LUNGS: Clear to auscultation. HEART: Regular rate and rhythm. ABDOMEN: Soft, nondistended and nontender. SKIN: [place], warm, and dry. No lesions or rashes noted. NEURO: No focal deficit. IMPRESSION AND PLAN: 1. End-stage renal disease. The patient proceeded to dialysis. Labs obtained in dialysis. Sodium 137, potassium 5.2, chloride 100, CO2 25, BUN 78, creatinine 8.2, blood sugar 95. Plan: After dialysis, Dr. Curtis recommended decreasing sodium bicarb to 650 mg b.i.d. The patient's son, Tom Mckinney, was given this information. 2. Hypertension. Plan: Continue current medications. 3. Anemia of chronic disease. Plan: For further dialysis per Dr. Curtis. RADHA ROD MD CAR/modl /[id number] d: 07/30/16807 t: 08/06/16 192, OUTPATIENT REPORT
[2016-07-29 09:20] LABS: ANION GAP 17.2 (10.0-19.0); CALCIUM 7.5 mg/dL (8.5-10.5); POTASSIUM 5.2 mMol/L (3.7-5.1)
[2016-07-29 09:23] LABS: CREATININE 8.2 mg/dL (0.5-1.1)
[2016-10-25] MEDS ORDERED: VITAMIN D-32000 UNI1 PO (15:08)
[2016-10-25] MEDS ORDERED: TYLENOL EXTRA500 MG PO (15:11)
== END 2016-07-29 13:15 | disposition disaster alternative care site (69) ==
LOC: GMED 07:23
PROVIDERS: Internal Medicine Nephrology
DX: I12.0 Hypertensive chronic kidney disease with stage 5 chronic kidney disease or end stage renal disease (principal); N18.6 End stage renal disease; D63.8 Anemia in other chronic diseases classified elsewhere; Z99.2 Dependence on renal dialysis; Z79.899 Other long term (current) drug therapy
CPT/HCPCS: G0257; J1644; Q4081

== ENCOUNTER 2016-08-02 07:21 | Emergency (ER) | payer MEDICAID ==
--- NOTE | ~2016-08-02 | CON ---
PATIENT'S NAME: NASIMA CHRISTIAN [facility] AGE: 65 Y [address] ROOM: [place] [address] LOCATION: ED ADMIT DATE: 08/02/2016 Consultation DISCHARGE DATE: 08/02/2016 FAMILY PHYSICIAN: PHYSICIAN, NO ATTENDING PHYSICIAN: Galdino Dc DATE OF CONSULTATION: 08/02/2016 [facility] Nephrology Consultation. REASON FOR CONSULTATION: End-stage renal disease, need for dialysis. HISTORY OF PRESENT ILLNESS: This is a 65-year-old female with a history of hypertension, ESRD without any health insurance, comes to the ER for need for dialysis. Currently no significant complaint. Last dialysis was on . She does have a tunneled dialysis catheter that was placed a few weeks ago. She is getting dialysis on Mondays and . She shows up on those days in the emergency room. Encouraged multiple times to go back to [place], but reluctant to do so. No chest pain. No shortness of breath or any other significant changes involving fluid overload. She denies any nausea, vomiting, or diarrhea. Acidosis has significantly improved since starting oral sodium bicarb. PAST MEDICAL HISTORY: 1. Hypertension. 2. End-stage renal disease. PAST SURGICAL HISTORY: History of hernia repair 14 years ago, history of tunneled dialysis catheter placement. FAMILY HISTORY: Hypertension in her mother and kidney failure in her mother. SOCIAL HISTORY: The patient used to live in [place]. She is visiting her son here in [place]. She does not have any health insurance. Never smoked tobacco. No history of alcohol abuse or IV drug use. REVIEW OF SYSTEMS: GENERAL: Denies any fever, chills, or night sweats. EYES: No double vision or blurred vision. NOSE: No epistaxis or rhinorrhea. PATIENT'S NAME: NASIMA CHRISTIAN [facility] AGE: 65 Y [address] ROOM: [place] [address] LOCATION: ED ADMIT DATE: 08/02/2016 Consultation DISCHARGE DATE: 08/02/2016 FAMILY PHYSICIAN: PHYSICIAN, NO ATTENDING PHYSICIAN: Galdino Dc THROAT: No sore throat. CARDIOVASCULAR: No chest pain or palpitations. RESPIRATORY: No shortness of breath. GENITOURINARY: No pain with urination. GASTROINTESTINAL: No nausea, vomiting, or diarrhea. NEUROLOGIC: No weakness or seizures. SKIN: No new lesions or rashes. HEMATOLOGICAL: No bruising or bleeding. PSYCHIATRIC: No depression or anxiety. PHYSICAL EXAMINATION: VITAL SIGNS: Blood pressure 120s over 70s, pulse is 74, respirations 18, sats 98% on room air. GENERAL: No acute distress. HEENT: Moist mucous membranes. Bilateral PERRLA and EOMI. NECK: No JVD or thyromegaly. No lymphadenopathy. CARDIOVASCULAR: Regular rate and rhythm. LUNGS: Lung sounds are clear to auscultation anterior and posteriorly. ABDOMEN: Soft, nontender, and nondistended. Bowel sounds positive. EXTREMITIES: Show no signs of peripheral edema, clubbing or cyanosis. SKIN: No pallor, cyanosis, or icterus. NEUROLOGICAL: Cranial nerves 2 through 12 are grossly intact. The patient is alert oriented x3. ALLERGIES: NONE TO MEDICATION. CURRENT MEDICATIONS: As per the chart reviewed on admission. LABORATORY DATA: Hemoglobin 10.2, hematocrit 31.7, WBCs 9.3, platelets 274. Glucose 94, BUN 76, creatinine 8.8. Sodium 140, potassium 5.6, chloride 103, CO2 21, calcium 7.2, albumin 2.8, phos is 6.2. ASSESSMENT: 1. End-stage renal disease without any medical insurance, does not get regular hemodialysis. 2. Hyperkalemia. 3. Hypertension. 4. Metabolic acidosis. RECOMMENDATION AND PLAN: The patient is seen and examined on dialysis and is tolerating dialysis well. Blood pressures are controlled after starting dialysis. Bicarbonate level has PATIENT'S NAME: NORRIS GORE [facility] AGE: 65 Y [address] ROOM: [place], [place] [address] LOCATION: [facility] ADMIT DATE: 08/02/2016 Consultation DISCHARGE DATE: 08/02/2016 FAMILY PHYSICIAN: , JESS ATTENDING PHYSICIAN: Galdino Dc improved significantly. We will continue to re-educate the patient on the importance of going back to [place] to get regular hemodialysis and also explained at length the risks, benefits, and serious complications that may happen with fluid overload, hyperkalemia, acidosis, or even , but the patient is declining the option for going back to [place] or moving to another state where she can get some kind of assistance with her dialysis regimen. We will continue dialyzing for now on a 2K bath for 4 hours each time. She shows up with average ultrafiltrate of 2-3 L or increasing as necessary. This patient has been seen and assessed by Dr. Curtis. Her care is being conducted in consultation Dr. Curtis as well as me. We will plan further recommendations as they are forthcoming. KWAKU ROCKWELL, GALI, POWERSAW SUPERVISOR FOR [facility] MD DAREN WILBURN/modl /[id number] d: 08/03/16 1437 t: 08/18/16 1001, CONSULTATION REPORT
--- NOTE | ~2016-08-02 | ER ---
PATIENT'S NAME: NASIMA CHRISTIAN [facility] AGE: 65 Y [address] ROOM: [place] [address] LOCATION: ED ADMIT DATE: 08/02/2016 ER/Outpatient Report DISCHARGE DATE: 08/02/2016 FAMILY PHYSICIAN: PHYSICIAN, NO ATTENDING PHYSICIAN: Galdino Dc CHIEF COMPLAINT: Need for dialysis. HISTORY OF PRESENT ILLNESS: The patient presents for her routine previously scheduled dialysis. She has no specific complaints. She is otherwise feeling well. No issues at this time. PAST MEDICAL HISTORY: Documented on the record and reviewed by me. SOCIAL HISTORY: Documented on the record and reviewed by me. MEDICATIONS: Documented on the record and reviewed by me. ALLERGIES: DOCUMENTED ON THE RECORD AND REVIEWED BY ME. REVIEW OF SYSTEMS: Review of systems was performed and negative except as noted in the HPI. PHYSICAL EXAMINATION: VITAL SIGNS: Blood pressure 187/88, pulse is 69, respiratory rate is 18, temperature 97.5, SpO2 is 99% on room air. GENERAL: An age-appropriate female. No obvious pain or distress, sitting upright on the exam table. NEUROLOGIC: Awake, alert, no obvious abnormalities. HEENT: Normal to inspection. CHEST: Heart is regular rate and rhythm with no obvious murmurs. LUNGS: Grossly clear to auscultation bilateral in all lung josé. ABDOMEN: Benign. EXTREMITIES: Warm and well perfused. SKIN: Clean, dry, and intact. LABORATORY DATA AND X-RAYS: None were taken in the ER. Labs per Dialysis. PATIENT'S NAME: NASIMA CHRISTIAN [facility] AGE: 65 Y [address] ROOM: [place] [address] LOCATION: ED ADMIT DATE: 08/02/2016 ER/Outpatient Report DISCHARGE DATE: 08/02/2016 FAMILY PHYSICIAN: PHYSICIAN, NO ATTENDING PHYSICIAN: Galdino Dc IMPRESSION: Need for dialysis, routine. EMERGENCY DEPARTMENT COURSE: The patient was seen and evaluated. She was cleared for dialysis, which was completed. No calls were received regarding any changes. She was discharged in good condition. MD MEGAN CESPEDES/brook /[id number] d: 08/03/16 0038 t: 08/03/16 1732, OUTPATIENT REPORT
[2016-08-02 09:18] LABS: BASOPHIL % 0.4 %; EOSINOPHIL # 0.1 K/uL (0.0-0.5); EOSINOPHIL % 1.3 %; HEMATOCRIT 31.7 % (33.0-46.0); HEMOGLOBIN 10.2 g/dL (10.0-15.0); IMMATURE GRANULOCYTE # 0.1 K/uL (0.0-0.3); IMMATURE GRANULOCYTE % 0.8 %; LYMPHOCYTE # 1.5 K/uL (0.8-4.0); LYMPHOCYTE % 16.4 %; MCH 30.9 pg (27.0-34.0); MCHC 32.2 gm/dL (32.0-36.5); MCV 96.1 fl (83.0-98.0); MONOCYTE # 0.7 K/uL (0.0-1.0); MONOCYTE % 7.6 %; MPV 9.4 fl (9.4-12.4); NEUTROPHIL # (ANC) 6.9 K/uL (1.8-7.8); NEUTROPHIL % 73.5 %; NRBC % 0 /100WBC (0-0.00); PLATELET COUNT 274 K/uL (150-450); RDW-CV 13.8 % (11.9-14.6); WBC 9.3 K/uL (4.0-11.0)
[2016-08-02 09:38] LABS: ALBUMIN 2.8 gm/dL (3.5-5.0); PHOSPHORUS 6.2 mg/dL (2.5-4.9)
[2016-08-02 09:42] LABS: ANION GAP 21.6 (10.0-19.0); CALCIUM 7.2 mg/dL (8.5-10.5); CREATININE 8.8 mg/dL (0.5-1.1); POTASSIUM 5.6 mMol/L (3.7-5.1)
[2016-10-25] MEDS ORDERED: VITAMIN D-32000 UNI1 PO (15:08)
[2016-10-25] MEDS ORDERED: TYLENOL EXTRA500 MG PO (15:11)
== END 2016-08-02 13:25 | disposition disaster alternative care site (69) ==
LOC: GMED 07:21
PROVIDERS: Internal Medicine Nephrology
DX: I12.0 Hypertensive chronic kidney disease with stage 5 chronic kidney disease or end stage renal disease (principal); N18.6 End stage renal disease; E87.5 Hyperkalemia; E87.2 Acidosis; Z99.2 Dependence on renal dialysis; Z79.899 Other long term (current) drug therapy
CPT/HCPCS: G0257; J1644; Q4081

== ENCOUNTER 2016-08-05 07:18 | Emergency (ER) | payer MEDICAID ==
--- NOTE | ~2016-08-05 | ER ---
PATIENT'S NAME: NASIMA CHRISTIAN [facility] AGE: 65 Y [address] ROOM: [place] [address] LOCATION: ED ADMIT DATE: 08/05/2016 ER/Outpatient Report DISCHARGE DATE: FAMILY PHYSICIAN: , NO ATTENDING PHYSICIAN: Mohsen Díaz Time of Arrival: 0718 hours. Time of Evaluation: 0723 hours. CHIEF COMPLAINT: Dialysis and medication refill. HISTORY OF PRESENT ILLNESS: The patient is a 65-year-old female who presents to the emergency department today with chief complaint of dialysis need as well as medication refill. The patient has been coming to the ER for a need for dialysis. She has end-stage renal disease without any health insurance, originally from [place]. She does have a tunneled dialysis catheter on the right. She apparently gets dialysis on Mondays and . Denies any symptoms at this time. No fevers or chills. No nausea or vomiting. No diarrhea or constipation. No chest pain. No shortness of breath. The patient does report that she is nearly out of her blood pressure medications. She is requesting a refill. PAST MEDICAL HISTORY: Hypertension and end-stage renal disease on hemodialysis, Mondays and . PAST SURGICAL HISTORY: Hernia repair 14 years ago and tunneled dialysis catheter placement. FAMILY HISTORY: History of hypertension in her mother and kidney failure in her mother. SOCIAL HISTORY: The patient used to live in [place]. She is here visiting her son. Does not have any health insurance. Has never smoked. Denies any alcohol or illicit drug use. ALLERGIES: NO KNOWN DRUG ALLERGIES. MEDICATIONS: Please see list. PRIMARY CARE DOCTOR: PATIENT'S NAME: NASIMA CHRISTIAN [facility] AGE: 65 Y [address] ROOM: [place] [address] LOCATION: [facility] ADMIT DATE: 08/05/2016 ER/Outpatient Report DISCHARGE DATE: FAMILY PHYSICIAN: PHYSICIANJESS ATTENDING PHYSICIAN: Mohsen Díaz None. REVIEW OF SYSTEMS: All systems are reviewed by myself and negative with the exception of those discussed in the HPI and past medical history. PHYSICAL EXAMINATION: VITAL SIGNS: Weight 68 kg. Blood pressure 187/85, pulse 69, respiratory rate 20, temperature 97.3, and oxygen saturation 98% on room air. GENERAL: The patient is a 65-year-old female, who appears stated age, in no acute distress at this time. HEENT: Head: Normocephalic, atraumatic. Pupils are equal, round, and reactive to light. NECK: Supple. There is no nuchal rigidity. CARDIOVASCULAR: Regular rate and rhythm. No murmurs, rubs, or gallops. LUNGS: Clear bilaterally with some mild fine crackles at the bases. ABDOMEN: Soft, nontender, and nondistended. No rebound, rigidity, or guarding. MUSCULOSKELETAL: The patient moves all 4 extremities. Ambulates in the room with steady gait. SKIN: Warm and dry. Tunneled catheter is on the right. It appears clean, dry and intact. LABORATORY DATA AND X-RAYS: None. IMPRESSION: 1. Need for dialysis. 2. Medication refill. 3. Initial visit. EMERGENCY DEPARTMENT COURSE: The patient was brought back to the examination room. Seen and evaluated by myself. History and physical performed as described above. I have the written prescription for medication refill of metoprolol 25 mg taking 1/2 tablet p.o. b.i.d. dispensing #30. We have contacted dialysis. The patient will undergo dialysis treatment. [facility]. DISPOSITION: The patient is discharged to home in good condition. PATIENT'S NAME: NASIMA CHRISTIAN [facility] AGE: 65 Y [address] ROOM: [place], [place] [address] LOCATION: ED ADMIT DATE: 08/05/2016 ER/Outpatient Report DISCHARGE DATE: FAMILY PHYSICIAN: PHYSICIAN, NO ATTENDING PHYSICIAN: Mohsen Díaz DO KJR/brook /[id number] d: 08/05/16 0756 t: 08/09/16 1114, OUTPATIENT REPORT
[2016-08-05 08:15] LABS: BASOPHIL # 0.1 K/uL (0.0-0.2); BASOPHIL % 0.7 %; EOSINOPHIL # 0.1 K/uL (0.0-0.5); EOSINOPHIL % 1.1 %; HEMATOCRIT 33.4 % (33.0-46.0); HEMOGLOBIN 10.9 g/dL (10.0-15.0); IMMATURE GRANULOCYTE # 0.1 K/uL (0.0-0.3); IMMATURE GRANULOCYTE % 0.7 %; LYMPHOCYTE # 1.5 K/uL (0.8-4.0); MCH 31.1 pg (27.0-34.0); MCHC 32.6 gm/dL (32.0-36.5); MCV 95.4 fl (83.0-98.0); MONOCYTE # 0.7 K/uL (0.0-1.0); MONOCYTE % 7.3 %; MPV 8.9 fl (9.4-12.4); NEUTROPHIL # (ANC) 6.5 K/uL (1.8-7.8); NEUTROPHIL % 73.2 %; NRBC % 0 /100WBC (0-0.00); PLATELET COUNT 257 K/uL (150-450); RDW-CV 13.7 % (11.9-14.6); WBC 8.9 K/uL (4.0-11.0)
[2016-08-05 08:29] LABS: CALCIUM 8.2 mg/dL (8.5-10.5); PHOSPHORUS 6.1 mg/dL (2.5-4.9)
[2016-08-05 08:30] LABS: CREATININE 8.4 mg/dL (0.5-1.1)
[2016-10-25] MEDS ORDERED: VITAMIN D-32000 UNI1 PO (15:08)
[2016-10-25] MEDS ORDERED: TYLENOL EXTRA500 MG PO (15:11)
== END 2016-08-05 12:57 | disposition disaster alternative care site (69) ==
LOC: GMED 07:18
PROVIDERS: Internal Medicine Nephrology
DX: I12.0 Hypertensive chronic kidney disease with stage 5 chronic kidney disease or end stage renal disease (principal); N18.6 End stage renal disease; Z99.2 Dependence on renal dialysis; Z79.899 Other long term (current) drug therapy
CPT/HCPCS: G0257; J1644; Q4081

== ENCOUNTER 2016-08-09 07:25 | Emergency (ER) | payer MEDICAID ==
--- NOTE | ~2016-08-09 | ER ---
PATIENT'S NAME: NASIMA CHRISTIAN [facility] AGE: 65 Y [address] ROOM: [place] [address] LOCATION: ED ADMIT DATE: 08/09/2016 ER/Outpatient Report DISCHARGE DATE: FAMILY PHYSICIAN: , NO ATTENDING PHYSICIAN: Mohsen Díaz Time of Arrival: 0725 hours. Time of Evaluation: 0727 hours. CHIEF COMPLAINT: Dialysis and medication refill. HISTORY OF PRESENT ILLNESS: The patient is a 65-year-old female who presents to the emergency department today with chief complaint of dialysis need as well as medication refill. The patient has been coming to the ER for need for dialysis. She has end-stage renal disease without any health insurance and is originally from [place]. She does have a tunneled dialysis catheter in the right. She gets dialysis on Mondays and . She denies any symptoms at this time. No fevers, chills, nausea, vomiting, diarrhea, or constipation. No chest pain, no shortness of breath. The patient is accompanied by family. The patient does report she is out of her PhosLo. She is requesting a refill at this time. PAST MEDICAL HISTORY: Hypertension; end-stage renal disease, on hemodialysis Mondays and . PAST SURGICAL HISTORY: Hernia repair 14 years ago in tunneled dialysis catheter. FAMILY HISTORY: Hypertension in mother and kidney failure in mother as well. SOCIAL HISTORY: The patient used to live in [place]. She is visiting son. Does not have any health insurance, has never smoked. Denies any alcohol or illicit drug use. ALLERGIES: NO KNOWN DRUG ALLERGIES. MEDICATIONS: Please see list. REVIEW OF SYSTEMS: All systems are reviewed by myself and are negative with the exception of those discussed in HPI and past medical history. PATIENT'S NAME: NASIMA CHRISTIAN [facility] AGE: 65 Y [address] ROOM: [place] [address] LOCATION: ED ADMIT DATE: 08/09/2016 ER/Outpatient Report DISCHARGE DATE: FAMILY PHYSICIAN: JESS MICHAELS ATTENDING PHYSICIAN: Mohsen Díaz PHYSICAL EXAMINATION: VITAL SIGNS: Weight 68.4 kg, blood pressure 150/74, pulse 66, respiratory rate 18, temperature 97.6, oxygen saturation 98% on room air. GENERAL: The patient is a 65-year-old female, who appears stated age, in no acute distress at this time. HEENT: Normocephalic, atraumatic. Pupils are equal, round, and reactive to light and accommodation. NECK: Supple. There is no nuchal rigidity. CARDIOVASCULAR: Regular rate and rhythm. No murmurs, rubs, or gallops. LUNGS: Clear to auscultation bilaterally. No wheezes, rales, or rhonchi. ABDOMEN: Soft, nontender, and nondistended. No rebound, rigidity, or guarding. MUSCULOSKELETAL: The patient moves all 4 extremities. Ambulates the room with steady gait. SKIN: Warm and dry. There is a tunneled catheter in the right. It does appear clean, dry, and intact. LABORATORY DATA AND X-RAYS: None. IMPRESSION: 1. Need for dialysis. 2. Medication refill. 3. Initial visit. EMERGENCY DEPARTMENT COURSE: The patient was brought back to the examination room. Seen and evaluated by myself. History and physical performed as described above. I have written a prescription for PhosLo 667 mg, take one tablet p.o. t.i.d., dispensing #90. We have contacted dialysis. The patient will undergo dialysis treatment. I have discussed following up with [facility]. DISPOSITION: The patient discharged home in good condition. DO ANDRES TREJO/brook /[id number] d: 08/09/16 0839 t: 08/09/16 1124, OUTPATIENT REPORT
[2016-08-09 08:21] LABS: BASOPHIL # 0.1 K/uL (0.0-0.2); BASOPHIL % 0.6 %; EOSINOPHIL # 0.1 K/uL (0.0-0.5); EOSINOPHIL % 1.3 %; HEMATOCRIT 33.6 % (33.0-46.0); HEMOGLOBIN 10.8 g/dL (10.0-15.0); IMMATURE GRANULOCYTE # 0.1 K/uL (0.0-0.3); IMMATURE GRANULOCYTE % 1.4 %; LYMPHOCYTE % 21.1 %; MCH 31.2 pg (27.0-34.0); MCHC 32.1 gm/dL (32.0-36.5); MCV 97.1 fl (83.0-98.0); MONOCYTE # 0.8 K/uL (0.0-1.0); MPV 8.9 fl (9.4-12.4); NEUTROPHIL # (ANC) 6.4 K/uL (1.8-7.8); NEUTROPHIL % 67.6 %; NRBC % 0 /100WBC (0-0.00); PLATELET COUNT 288 K/uL (150-450); RBC 3.46 M/uL (3.50-5.50); RDW-CV 13.8 % (11.9-14.6); WBC 9.5 K/uL (4.0-11.0)
[2016-08-09 08:37] LABS: PHOSPHORUS 6.1 mg/dL (2.5-4.9)
[2016-08-09 08:41] LABS: ANION GAP 21.6 (10.0-19.0); CALCIUM 7.1 mg/dL (8.5-10.5); CREATININE 10.8 mg/dL (0.5-1.1); POTASSIUM 5.6 mMol/L (3.7-5.1)
[2016-10-25] MEDS ORDERED: VITAMIN D-32000 UNI1 PO (15:08)
[2016-10-25] MEDS ORDERED: TYLENOL EXTRA500 MG PO (15:11)
== END 2016-08-09 13:11 | disposition disaster alternative care site (69) ==
LOC: GMED 07:25
PROVIDERS: Internal Medicine Nephrology
DX: Z99.2 Dependence on renal dialysis (principal); Z76.0 Encounter for issue of repeat prescription; I12.0 Hypertensive chronic kidney disease with stage 5 chronic kidney disease or end stage renal disease; N18.6 End stage renal disease; Z90.49 Acquired absence of other specified parts of digestive tract; Z79.899 Other long term (current) drug therapy
CPT/HCPCS: G0257; Q4081

== ENCOUNTER 2016-08-12 07:21 | Emergency (ER) | payer MEDICAID ==
--- NOTE | ~2016-08-12 | ER ---
PATIENT'S NAME: NASIMA CHRISTIAN [facility] AGE: 65 Y [address] ROOM: [place] [address] LOCATION: [facility] ADMIT DATE: 08/12/2016 ER/Outpatient Report DISCHARGE DATE: FAMILY PHYSICIAN: JESS MICHAELS ATTENDING PHYSICIAN: Radha Giraldo Time of arrival: 0721 hours. Time seen: 0730 hours. IDENTIFICATION: A 65-year-old female. CHIEF COMPLAINT: Need for dialysis. HISTORY OF PRESENT ILLNESS: The patient is here with a complaint of dialysis. She has been coming to the ER for dialysis. She has end-stage renal disease without health insurance, so she presents to the emergency room for dialysis. She currently has no complaints. No questions. No chest pain. No cough or shortness of breath. No abdominal pain. No fever or chills. ALLERGIES: NO KNOWN DRUG ALLERGIES. CURRENT MEDICATIONS: 1. Calcium acetate 667 mg t.i.d. 2. Sodium bicarbonate 10 mg t.i.d. 3. Metoprolol 25 mg half tablet daily. MEDICAL PROBLEMS: Hypertension and end-stage renal disease. PRIOR SURGERIES: Hernia repair 14 years ago and a history of a tunnelled dialysis catheter. FAMILY HISTORY: Mother with hypertension and kidney failure. SOCIAL HISTORY: The patient lives in [place]. She has been visiting her son in [place]. She does not have any health insurance. She has apparently been reluctant to return to [place] and has been in the process of getting Medicare or Medicaid coverage. Tobacco use, denies. Alcohol use, denies. Drug use, denies. PATIENT'S NAME: NASIMA CHRISTIAN [facility] AGE: 65 Y [address] ROOM: [place] [address] LOCATION: [facility] ADMIT DATE: 08/12/2016 ER/Outpatient Report DISCHARGE DATE: FAMILY PHYSICIAN: PHYSICIANJESS ATTENDING PHYSICIAN: Radha Giraldo REVIEW OF SYSTEMS: All systems reviewed and negative other than what is noted in the HPI. PHYSICAL EXAMINATION: VITAL SIGNS: Weight 68 kg, blood pressure 158/81, pulse 78, respirations 18, temperature 97.3, and sats 94%. GENERAL: A pleasant female, in no acute distress. HEENT: Unremarkable. LUNGS: Clear to auscultation. HEART: Regular rate and rhythm. ABDOMEN: Soft, nondistended, and nontender. SKIN: [place], warm, and dry. No lesions or rashes noted. NEURO: No focal deficit. EXTREMITIES: No lower extremity edema. IMPRESSION: End-stage renal disease. The patient proceeded to dialysis. LABORATORY DATA: Labs were obtained in dialysis. Sodium 138, potassium 5.4, chloride 102, CO2 of 26, BUN 72, creatinine 8.7, and blood sugar 95. PLAN: 1. Per Nephrology, continue current medications and follow up as scheduled for dialysis. 2. Hypertension. Continue current medications. 3. Anemia of chronic disease. MD MARLO NATH/brook /[id number] d: 08/13/16 0020 t: 08/15/16 0700, OUTPATIENT REPORT
--- NOTE | ~2016-08-12 | CON ---
PATIENT'S NAME: NASIMA CHRISTIAN [facility] AGE: 65 Y [address] ROOM: [place] [address] LOCATION: ED ADMIT DATE: 08/12/2016 Consultation DISCHARGE DATE: FAMILY PHYSICIAN: PHYSICIAN, NO ATTENDING PHYSICIAN: Radha Giraldo DATE OF CONSULTATION: 08/12/2016 REFERRING PHYSICIAN: Radha Giraldo MD REASON FOR CONSULTATION: ESRD, need for dialysis. HISTORY OF PRESENT ILLNESS: A 65-year-old lady with history of hypertension, ESRD, without any health insurance, comes to the ER for dialysis need. No new complaints. Last dialysis was on Tuesday. She has a tunneled dialysis catheter which is occasionally positional, encouraged multiple times to go back to [place], but reluctant to do so. Denies any chest pain, shortness of breath, orthopnea, PND, or any sign of fluid overload. No nausea, vomiting, or diarrhea. Acidosis significantly improved since starting sodium bicarb. PAST HISTORY: Hypertension, end-stage renal disease. PAST SURGICAL HISTORY: History of hernia repair by 14 years ago, history of TDC placement. FAMILY HISTORY: Hypertension in mother and kidney failure in mother. SOCIAL HISTORY: [place] to live in [place], currently visiting her son here, does not have any health insurance. No history of smoking, alcohol abuse, or IV drug use. REVIEW OF SYSTEMS: GENERAL: No fever. No chills or rigor. HEENT: No sore throat. No sinus congestion. CVS: No chest pain. No exertional shortness of breath. No leg swelling. RESPIRATORY: No shortness of breath. No cough. No wheezing. GENITOURINARY: No pain with urination. No increased frequency. No nocturia. GASTROINTESTINAL: No abdominal pain. No abdominal distention. No nausea or vomiting. NEUROLOGIC: No weakness. No seizures. SKIN: No rash. No itching. ALLERGIES: No seasonal allergy. No hayfever. ENDOCRINE: No heat intolerance. No cold intolerance. PSYCHIATRIC: No sadness. No crying spells. No history of panic attack. VITAL SIGNS: Blood pressure 100 to 110 over 50 to 60, pulse 70, respiratory rate 18, saturating 96% to 98% on room air.PATIENT'S NAME: NASIMA CHRISTIAN [facility] AGE: 65 Y [address] ROOM: [place], [place] [address] LOCATION: ED ADMIT DATE: 08/12/2016 Consultation DISCHARGE DATE: FAMILY PHYSICIAN: PHYSICIAN, NO ATTENDING PHYSICIAN: Radha Giraldo PHYSICAL EXAMINATION: GENERAL: Not in apparent distress. HEAD: Moist mucous membranes. Bilateral PERRLA, EOMI. NECK: No JVD, thyromegaly or lymphadenopathy. CVS: S1 and S2 normal, regular rate and rhythm. No murmur, rub, gallop. CHEST: Bilateral air entry equal. No wheeze or rales. ABDOMEN: Soft, nontender, nondistended. Bowel sounds present. EXTREMITIES: No cyanosis, clubbing, jaundice. No dependent edema. MUSCULOSKELETAL: No limitation of range of motion. SKIN: No pallor, cyanosis, icterus. EDGE POLISHER: Alert and oriented x3. No gross findings. MEDICATIONS: As per the chart. LABORATORY EVALUATION: Sodium 138, potassium 5.4, chloride 102, bicarbonate 26, calcium 8, BUN 72, creatinine 8.7, albumin 3.1, phosphorus 6. ASSESSMENT: 1. End-stage renal disease, without any medical insurance, does not get regular hemodialysis but shows up in the ER on Mondays and for getting dialysis. 2. Hyperkalemia, resolved. 3. Hypertension, well controlled. 4. Metabolic acidosis, improved with sodium bicarb. RECOMMENDATION AND PLAN: The patient has been seen and examined on dialysis, tolerating dialysis well. However, the flow through tunnelled dialysis catheter is kind of positional. Blood flow rate is varying anywhere between 350 to 500. Currently getting dialysis on a 2K bath for 4 hours with a goal of 1-2 L ultrafiltrateas per her hemodynamic response. Metabolic acidosis has improved significantly as mentioned above with bicarbonate supplementation. We will continue current bicarb supplementation for now. The patient has been educated about the need for regular hemodialysis and expect to go back to [place] to get regular hemodialysis and also explained about the risk of serious complication that may happen with fluid overload, hyperkalemia, acidosis, or even , but the patient is declining the option for going back to [place] or moving to another state to get some financial assistance with her dialysis regimen. Thank you for allowing me to participate in this patient's care. ABHISEKH MD MAYRA WILBURN/brook /[id number] d: 08/12/16 1612 t: 08/14/16 1311, CONSULTATION REPORT
[2016-08-12 10:10] LABS: ALBUMIN 3.1 gm/dL (3.5-5.0); ANION GAP 15.4 (10.0-19.0); CREATININE 8.7 mg/dL (0.5-1.1); POTASSIUM 5.4 mMol/L (3.7-5.1)
[2016-10-25] MEDS ORDERED: VITAMIN D-32000 UNI1 PO (15:08)
[2016-10-25] MEDS ORDERED: TYLENOL EXTRA500 MG PO (15:11)
== END 2016-08-12 12:41 | disposition disaster alternative care site (69) ==
LOC: GMED 07:21
PROVIDERS: Internal Medicine Nephrology
DX: I12.0 Hypertensive chronic kidney disease with stage 5 chronic kidney disease or end stage renal disease (principal); N18.6 End stage renal disease; Z99.2 Dependence on renal dialysis; D63.1 Anemia in chronic kidney disease; Z79.899 Other long term (current) drug therapy
CPT/HCPCS: G0257; J1644; P9047; Q4081

== ENCOUNTER 2016-08-16 07:26 | Emergency (ER) | payer MEDICAID ==
--- NOTE | ~2016-08-16 | ER ---
PATIENT'S NAME: NASIMA CHRISTIAN [facility] AGE: 65 Y [address] ROOM: [place] [address] LOCATION: [facility] ADMIT DATE: 08/16/2016 ER/Outpatient Report DISCHARGE DATE: FAMILY PHYSICIAN: PHYSICIAN, NO ATTENDING PHYSICIAN: Mohsen Díaz Time of Arrival: 0726 hours. Time of Evaluation: 0729 hours. CHIEF COMPLAINT: Need for dialysis. HISTORY OF PRESENT ILLNESS: The patient is a 65-year-old female who presents to the emergency department today with a need for dialysis. She has been coming to the emergency department for dialysis. She has end-stage renal disease without health insurance. She complains of no complaints at this time. She has no questions, no chest pain, no shortness of breath. No fevers, chills, nausea, vomiting, diarrhea, or constipation. PAST MEDICAL HISTORY: Hypertension; end-stage renal disease, on hemodialysis Tuesday and . PAST SURGICAL HISTORY: Hernia repair and tunneled dialysis catheter. FAMILY HISTORY: Hypertension and kidney disease. SOCIAL HISTORY: The patient lives in [place], is visiting her son in [place]. Denies any tobacco, alcohol, or illicit drug use. ALLERGIES: NO KNOWN DRUG ALLERGIES. MEDICATIONS: Please see list. REVIEW OF SYSTEMS: All systems are reviewed by myself and are negative with the exception of those discussed in HPI and past medical history. PHYSICAL EXAMINATION: VITAL SIGNS: Weight 68 kg, blood pressure 182/79, pulse 68, respiratory rate [facility] 65 Y [address] ROOM: [place] [address] LOCATION: [facility] ADMIT DATE: 08/16/2016 ER/Outpatient Report DISCHARGE DATE: FAMILY PHYSICIAN: PHYSICIAN, NO ATTENDING PHYSICIAN: Mohsen Díaz 18, temperature 97.6, oxygen saturation 97% on room air. GENERAL: The patient is a 65-year-old female, who appears in no acute distress at this time. HEENT: Normocephalic, atraumatic. Mucous membranes are moist. NECK: Supple. There is no nuchal rigidity. CARDIOVASCULAR: Regular rate and rhythm. No murmurs, rubs, or gallops. LUNGS: Clear to auscultation bilaterally. No wheezes, rales, or rhonchi. ABDOMEN: Soft, nontender, and nondistended. No rebound, rigidity, or guarding. MUSCULOSKELETAL: The patient moves all 4 extremities. Ambulates with steady gait. SKIN: Warm and dry. There is no rashes or lesions noted. DIAGNOSTIC DATA: Labs and x-rays will be drawn at dialysis. IMPRESSION: 1. End-stage renal disease, requiring dialysis. 2. Initial visit. EMERGENCY DEPARTMENT COURSE: The patient was brought back to the examination room. Seen and evaluated by myself. History and physical were performed as described above. The patient will proceed to dialysis. DISPOSITION: The patient is discharged to home in good condition. DO ANDRES TREJO/modl /[id number] d: 08/16/16 0951 t: 08/16/16 1610, OUTPATIENT REPORT
[2016-08-16 09:02] LABS: ALBUMIN 3.3 gm/dL (3.5-5.0); ANION GAP 17.4 (10.0-19.0); CALCIUM 8.4 mg/dL (8.5-10.5); PHOSPHORUS 4.8 mg/dL (2.5-4.9); POTASSIUM 5.4 mMol/L (3.7-5.1)
[2016-08-16 09:12] LABS: BASOPHIL % 0.5 %; EOSINOPHIL # 0.1 K/uL (0.0-0.5); EOSINOPHIL % 1.6 %; HEMATOCRIT 33.6 % (33.0-46.0); HEMOGLOBIN 10.8 g/dL (10.0-15.0); IMMATURE GRANULOCYTE % 0.4 %; LYMPHOCYTE # 1.3 K/uL (0.8-4.0); LYMPHOCYTE % 17.8 %; MCH 30.8 pg (27.0-34.0); MCHC 32.1 gm/dL (32.0-36.5); MCV 95.7 fl (83.0-98.0); MONOCYTE # 0.6 K/uL (0.0-1.0); MONOCYTE % 8.1 %; MPV 9.4 fl (9.4-12.4); NEUTROPHIL # (ANC) 5.4 K/uL (1.8-7.8); NEUTROPHIL % 71.6 %; NRBC % 0 /100WBC (0-0.00); PLATELET COUNT 293 K/uL (150-450); RBC 3.51 M/uL (3.50-5.50); RDW-CV 13.6 % (11.9-14.6); WBC 7.5 K/uL (4.0-11.0)
[2016-08-16 09:15] LABS: CREATININE 9.1 mg/dL (0.5-1.1)
[2016-10-25] MEDS ORDERED: VITAMIN D-32000 UNI1 PO (15:08)
[2016-10-25] MEDS ORDERED: TYLENOL EXTRA500 MG PO (15:11)
== END 2016-08-16 12:38 | disposition disaster alternative care site (69) ==
LOC: GMED 07:26
PROVIDERS: Internal Medicine Nephrology
DX: I12.0 Hypertensive chronic kidney disease with stage 5 chronic kidney disease or end stage renal disease (principal); N18.6 End stage renal disease; Z99.2 Dependence on renal dialysis; Z79.899 Other long term (current) drug therapy
CPT/HCPCS: G0257; J1644; Q4081

== ENCOUNTER 2016-08-19 07:24 | Emergency (ER) | payer MEDICAID ==
--- NOTE | ~2016-08-19 | ER ---
PATIENT'S NAME: NASIMA CHRISTIAN [facility] AGE: 65 Y [address] ROOM: [place] [address] LOCATION: ED ADMIT DATE: 08/19/2016 ER/Outpatient Report DISCHARGE DATE: 08/19/2016 FAMILY PHYSICIAN: PHYSICIAN, NO ATTENDING PHYSICIAN: Radha Giraldo Time of Arrival: 0724 hours. Time Seen: 0733 hours. IDENTIFICATION: A 65-year-old female. CHIEF COMPLAINT: Dialysis. HISTORY OF PRESENT ILLNESS: The patient is a 65-year-old female with end-stage renal disease, who has been coming through the ER for dialysis. She currently has no complaints, no questions, no chest pain, no cough, no shortness of breath, no abdominal pain, no fever or chills. PAST MEDICAL HISTORY: Allergies: No known drug allergies. CURRENT MEDICATIONS: 1. Calcium acetate 667 mg t.i.d. 2. Metoprolol 25 mg, half tab daily. 3. Sodium bicarb 10 mg t.i.d. MEDICAL PROBLEMS: Hypertension and end-stage renal disease. PRIOR SURGERIES: Hernia repair 14 years ago and history of a tunneled dialysis catheter. FAMILY HISTORY: Mother with hypertension and kidney failure. SOCIAL HISTORY: The patient lives in [place]. She has been visiting her son in [place]. She does not have any health insurance and has been in the process of getting Medicare or Medicaid coverage. Tobacco use, denies. Alcohol use, denies. Drug use, denies. REVIEW OF SYSTEMS: PATIENT'S NAME: NASIMA CHRISTIAN [facility] AGE: 65 Y [address] ROOM: [place] [address] LOCATION: ED ADMIT DATE: 08/19/2016 ER/Outpatient Report DISCHARGE DATE: 08/19/2016 FAMILY PHYSICIAN: PHYSICIAN, NO ATTENDING PHYSICIAN: Radha Giraldo All systems were reviewed and negative other than what is noted in the HPI. PHYSICAL EXAMINATION: VITAL SIGNS: Weight 67.7 kg, blood pressure 111/65, pulse 72, respirations 20, temperature 97.8, and sats 92% on room air. GENERAL: Pleasant female, in no acute distress. HEENT: Unremarkable. LUNGS: Clear to auscultation. HEART: Regular rate and rhythm. ABDOMEN: Soft, nondistended, and nontender. SKIN: [place], warm, and dry. No lesions or rashes noted. NEURO: No focal deficit. EXTREMITIES: No edema. IMPRESSION AND PLAN: 1. End-stage renal disease. The patient obtained her dialysis and will follow up as scheduled for next dialysis. 2. Hypertension, well controlled. 3. Metabolic acidosis, improved with sodium bicarb. 4. Anemia of chronic disease. Hemoglobin 10.6, which is stable. ARDHA GIRALDO MD CAR/modl /[id number] d: 08/20/16 0734 t: 08/20/16 1342, OUTPATIENT REPORT
--- NOTE | ~2016-08-19 | CON ---
PATIENT'S NAME: NORRIS GORE [facility] AGE: 65 Y [address] ROOM: [place] [address] LOCATION: [facility] ADMIT DATE: 08/19/2016 Consultation DISCHARGE DATE: 08/19/2016 FAMILY PHYSICIAN: PHYSICIAN, JESS ATTENDING PHYSICIAN: Radha Giraldo DATE OF CONSULTATION: 08/19/2016 REASON FOR CONSULTATION: ESRD, need for hemodialysis. HISTORY OF PRESENT ILLNESS: A 65-year-old female with history of hypertension and ESRD, without any health insurance comes to the ER for dialysis needs. No new complaint. Denied any significant interval history. Last dialysis was on Tuesday. She has a tunneled dialysis catheter which is functioning okay so far. She denied going back to [place] multiple times and does not want to move to other state to get financial help. No chest pain, shortness of breath, orthopnea, PND, or no sign of fluid overload. No nausea, vomiting, or diarrhea. PAST MEDICAL HISTORY: Hypertension and end-stage renal disease. PAST SURGICAL HISTORY: History of hernia repair by 14 years ago and history of tunneled dialysis catheter placement. FAMILY HISTORY: Hypertension in mother and father, and kidney failure in mother. SOCIAL HISTORY: She used to live in [place], currently visiting her son here, does not have any health insurance. No history of smoking, alcohol abuse, or IV drug use. REVIEW OF SYSTEMS: GENERAL: No fever. No chills or rigor. HEENT: No sore throat. No sinus congestion. CVS: No chest pain. No exertional shortness of breath. No leg swelling. RESPIRATORY: No shortness of breath. No cough. No wheezing. GENITOURINARY: No pain with urination. No increased frequency. No nocturia. GASTROINTESTINAL: No abdominal pain. No abdominal distention. No nausea or vomiting. NEUROLOGIC: No weakness. No seizures. SKIN: No rash. No itching. ALLERGIES: No seasonal allergy. No hayfever. ENDOCRINE: No heat intolerance. No cold intolerance. PSYCHIATRIC: No sadness. No crying spells. No history of panic attack. PHYSICAL EXAMINATION: VITAL SIGNS: Blood pressure 90 to 120 over 50 to 60. Pulse 70, respiratory rate 18, and saturating 96% to 98% on room air. GENERAL: Not in apparent distress. HEAD: Moist mucous membranes. Bilateral PERRLA, EOMI. NECK: No JVD, thyromegaly or lymphadenopathy. CVS: S1 and S2 normal, regular rate and rhythm. No murmur, rub, gallop. CHEST: Bilateral air entry equal. No wheeze or rales. ABDOMEN: Soft, nontender, nondistended. Bowel sounds present. EXTREMITIES: No cyanosis, clubbing, jaundice. No dependent edema. MUSCULOSKELETAL: No limitation of range of motion. SKIN: No pallor, cyanosis, icterus. PLASMA CENTER NURSE: Alert and oriented x3. No gross findings.PATIENT'S NAME: NORRIS GORE [facility] AGE: 65 Y [address] ROOM: [place] [address] LOCATION: [facility] ADMIT DATE: 08/19/2016 Consultation DISCHARGE DATE: 08/19/2016 FAMILY PHYSICIAN: PHYSICIAN, NO ATTENDING PHYSICIAN: Radha Giraldo MEDICATIONS: As per chart. LABORATORY EXAMINATION: Sodium 139, potassium 5.1, bicarbonate 24, BUN and creatinine of 56 and 8.6, calcium 8.3, phosphorous 5.4, and albumin 3.1. Hemoglobin 10.6 and hematocrit 33. ASSESSMENT: 1. End-stage renal disease, without any medical insurance, does not get regular hemodialysis, but shows up in ER on Mondays and for getting hemodialysis. 2. Hyperkalemia, which is possibly secondary to dietary noncompliance with renal diet. 3. Hypertension, well controlled. 4. Metabolic acidosis, improved on sodium bicarb. RECOMMENDATION AND PLAN: The patient has been seen and examined on dialysis, tolerating dialysis well. No new complaint regarding fluid overload or significant uremic symptoms. Blood flow rate today is around 400 to 500. Currently getting dialysis on 2K bath for 4 hours and goal of 1 to 2 L of ultrafiltrate as per hemodynamic response. Metabolic acidosis has improved significantly with bicarb supplementation. We will continue current bicarb supplementation for now. The patient has been educated about the need for regular hemodialysis and expect to go back to [place] to get regular hemodialysis and also explained the risk of serious complication that may happen with fluid overload, hyperkalemia, acidosis, or even , but the patient is declining the option to go back to [place] or moving to another state to get some financial assistance with her dialysis regimen. Thank you for allowing me to participate in this patient's care. MD MAYRA LOO/brook /[id number] d: 08/19/16 1524 t: 08/19/16 1814, CONSULTATION REPORT
[2016-08-19 08:33] LABS: HEMOGLOBIN 10.6 g/dL (10.0-15.0)
[2016-08-19 08:49] LABS: ALBUMIN 3.1 gm/dL (3.5-5.0); ANION GAP 18.1 (10.0-19.0); CALCIUM 8.3 mg/dL (8.5-10.5); PHOSPHORUS 5.4 mg/dL (2.5-4.9); POTASSIUM 5.1 mMol/L (3.7-5.1)
[2016-08-19 08:50] LABS: CREATININE 8.6 mg/dL (0.5-1.1)
[2016-10-25] MEDS ORDERED: VITAMIN D-32000 UNI1 PO (15:08)
[2016-10-25] MEDS ORDERED: TYLENOL EXTRA500 MG PO (15:11)
== END 2016-08-19 12:51 | disposition disaster alternative care site (69) ==
LOC: GMED 07:24
PROVIDERS: Internal Medicine Nephrology
DX: I12.0 Hypertensive chronic kidney disease with stage 5 chronic kidney disease or end stage renal disease (principal); N18.6 End stage renal disease; Z99.2 Dependence on renal dialysis; Z98.890 Other specified postprocedural states; E87.2 Acidosis; D63.8 Anemia in other chronic diseases classified elsewhere; Z79.899 Other long term (current) drug therapy
CPT/HCPCS: G0257; J1644; Q4081

== ENCOUNTER 2016-08-23 07:28 | Emergency (ER) | payer MEDICAID ==
--- NOTE | ~2016-08-23 | ER ---
PATIENT'S NAME: NASIMA CHRISTIAN [facility] AGE: 65 Y [address] ROOM: [place] [address] LOCATION: ED ADMIT DATE: 08/23/2016 ER/Outpatient Report DISCHARGE DATE: 08/23/2016 FAMILY PHYSICIAN: PHYSICIAN, NO ATTENDING PHYSICIAN: Galdino Dc CHIEF COMPLAINT: Need for dialysis. HISTORY OF PRESENT ILLNESS: The patient needs dialysis. She presents routinely for this issue. There has been some significant difficulty getting her set up for outpatient dialysis. No other acute findings. The patient has no complaints. PAST MEDICAL HISTORY: Reviewed by me and negative. SOCIAL HISTORY: Reviewed by me and negative. MEDICATIONS: Reviewed by me and negative. REVIEW OF SYSTEMS: Documented and reviewed as negative except as noted in the HPI. PHYSICAL EXAMINATION: VITAL SIGNS: On arrival, blood pressure 150/70, pulse 62, respiratory rate is 18, temperature 97.0, SpO2 is 100% on room air. GENERAL: An age-appropriate female, in no apparent pain or distress. NEUROLOGIC: Awake, alert, no obvious abnormalities. HEENT: Normal to inspection. CHEST: Even and unlabored respirations. LUNGS: Clear. HEART: Regular rate and rhythm with no murmurs. ABDOMEN: Benign. EXTREMITIES: Warm, well formed, perfused. No edema. SKIN: Clean, dry, and intact. LABORATORY DATA AND X-RAYS: Labs and x-rays, per dialysis. IMPRESSION: Need for dialysis, completed. PATIENT'S NAME: NASIMA CHRISTIAN [facility] AGE: 65 Y [address] ROOM: [place] [address] LOCATION: ED ADMIT DATE: 08/23/2016 ER/Outpatient Report DISCHARGE DATE: 08/23/2016 FAMILY PHYSICIAN: PHYSICIAN, NO ATTENDING PHYSICIAN: Galdino Dc EMERGENCY DEPARTMENT COURSE: The patient was seen and evaluated, deemed to be appropriate for dialysis. She was sent to dialysis. Labs were drawn per them. Please see their evaluation and notes for details. The patient was feeling her usual post dialysis self, slightly tired, blood pressures were in her normal range after dialysis, and she was discharged in good condition. MD MEGAN CESPEDES/brook /[id number] d: 08/23/162049 t: 09/06/16 0650, OUTPATIENT REPORT
--- NOTE | ~2016-08-23 | CON ---
PATIENT'S NAME: NASIMA CHRISTIAN [facility] AGE: 65 Y [address] ROOM: [place] [address] LOCATION: [facility] ADMIT DATE: 08/23/2016 Consultation DISCHARGE DATE: 08/23/2016 FAMILY PHYSICIAN: PHYSICIAN, NO ATTENDING PHYSICIAN: Galdino Dc DATE OF CONSULTATION: 08/23/2016 [facility] Nephrology Consultation REASON FOR CONSULTATION: End-stage renal disease, need for hemodialysis. HISTORY OF PRESENT ILLNESS: This is a 65-year-old female patient with history of hypertension and ESRD without any health insurance, who comes to the emergency room for dialysis needs. She denies any further complaints. No acute findings are noted. Last hemodialysis was on . She has had no trouble with her tunneled dialysis catheter which has been functioning okay thus far. The patient does deny going back to [place] multiple times and does not want to move to another state to get financial help. The patient denies any chest pain, shortness of breath, orthopnea, PND, or signs of fluid overload. No nausea, vomiting, or diarrhea are noted. PAST MEDICAL HISTORY: As listed above includin. End-stage renal disease. 2. Hypertension. PAST SURGICAL HISTORY: The patient is positive for hernia repair 14 years ago as well as history of tunneled dialysis catheter placement. FAMILY HISTORY: Significant for hypertension in both mother and father as well as kidney failure in the mother. SOCIAL HISTORY: The patient used to live in [place], currently visiting her son here and does not have any health insurance. No history of smoking, alcohol use, or IV drug use. REVIEW OF SYSTEMS: GENERAL: Denies any fever, chills, or night sweats. HEENT: Eyes; no double vision or blurred vision. Nose; no epistaxis or PATIENT'S NAME: NASIMA CHRISTIAN [facility] AGE: 65 Y [address] ROOM: [place] [address] LOCATION: [facility] ADMIT DATE: 08/23/2016 Consultation DISCHARGE DATE: 08/23/2016 FAMILY PHYSICIAN: PHYSICIAN, NO ATTENDING PHYSICIAN: Galdino Dc rhinorrhea. Mouth; no gingival bleeding. Throat; no sore throat, hoarseness, or cough. RESPIRATORY: Denies wheezing or hemoptysis. CARDIOVASCULAR: Denies any chest pain or palpitations. GASTROINTESTINAL: Denies any nausea, vomiting, or diarrhea. Denies hematemesis or hematochezia. GENITOURINARY: Denies any frequency, urgency, or hesitancy. Continues to make urine despite hemodialysis. SKIN: No new rashes or lesions. ENDOCRINE: No heat or cold intolerance. PSYCHIATRIC: No history of depression or anxiety. PHYSICAL EXAMINATION: VITAL SIGNS: Blood pressure 150/70, pulse 62, respirations 18, temperature 97.0, and sats 100% on room air. GENERAL: On exam, this is an alert and oriented, female who is in no acute distress. She is alert and oriented to person, place, and time. HEENT: Head; normocephalic and atraumatic. Eyes; pupils are equal and react briskly to light and accommodation. EOMs are intact. Nose; midline. Mouth; no gingival bleeding. Throat is without lymphadenopathy, carotid bruits, or JVD. RESPIRATORY: Lung sounds are clear to auscultation anteriorly and posteriorly. CARDIOVASCULAR: Regular rate and rhythm with no murmurs. ABDOMEN: Soft, nontender, and nondistended. Bowel sounds positive. EXTREMITIES: Show no signs of peripheral edema, clubbing, or cyanosis. SKIN: Clean, dry, and intact. ASSESSMENT: 1. End-stage renal disease, without medical insurance, does not get regular hemodialysis, but shows up in the emergency room on Mondays and for routine dialysis. 2. Hyperkalemia. This is likely secondary to dietary noncompliance with a renal diet. 3. Hypertension, well controlled. 4. Metabolic acidosis, improved with dialysis. RECOMMENDATIONS AND PLAN: The patient has been seen and examined on hemodialysis. She tolerated hemodialysis well. We did recontact daycare director, Holly to further evaluate the patient's insurance status. We did make recommendations that the patient continue to pursue insurance and getting qualified for Medicaid in [place]. She is going to run on a 2K bath for 4 hours and goal of 1 to 2 L of ultrafiltration as per hemodynamic response. We will continue to work with the Care Management for her outpatient dialysis set up. We did discuss the PATIENT'S NAME: NORRIS GORE [facility] AGE: 65 Y [address] ROOM: [place], [place] [address] LOCATION: [facility] ADMIT DATE: 08/23/2016 Consultation DISCHARGE DATE: 08/23/2016 FAMILY PHYSICIAN: JESS MICHAELS ATTENDING PHYSICIAN: Galdino Dc risk of serious complications with the patient again that could happen with fluid volume overload as well as hyperkalemia, acidosis, or even , but the patient is declining the option to go back to [place] or moving to another state to get some financial assistance with her dialysis regimen. Thank you for allowing Nephrology to participate in this patient's care. This patient has been seen and assessed by Dr. Curtis. Her care is being conducted in consultation with Dr. Curtis as well as Shayna Oden DNP, GEMA. We will plan further recommendations as they are forthcoming. SHAYNA ODEN DNP, GEMA FOR [facility] MD DAREN WILBURN/brook /[id number] d: 08/25/162126 t: 08/30/16 1343, CONSULTATION REPORT
[2016-08-23 08:40] LABS: BASOPHIL % 0.4 %; EOSINOPHIL # 0.1 K/uL (0.0-0.5); EOSINOPHIL % 1.5 %; HEMATOCRIT 32.8 % (33.0-46.0); HEMOGLOBIN 10.7 g/dL (10.0-15.0); IMMATURE GRANULOCYTE % 0.4 %; LYMPHOCYTE # 1.6 K/uL (0.8-4.0); LYMPHOCYTE % 20.8 %; MCH 30.9 pg (27.0-34.0); MCHC 32.6 gm/dL (32.0-36.5); MCV 94.8 fl (83.0-98.0); MONOCYTE # 0.7 K/uL (0.0-1.0); MONOCYTE % 8.5 %; MPV 8.9 fl (9.4-12.4); NEUTROPHIL # (ANC) 5.3 K/uL (1.8-7.8); NEUTROPHIL % 68.4 %; NRBC % 0 /100WBC (0-0.00); PLATELET COUNT 282 K/uL (150-450); RBC 3.46 M/uL (3.50-5.50); RDW-CV 13.6 % (11.9-14.6); WBC 7.8 K/uL (4.0-11.0)
[2016-08-23 08:54] LABS: ALBUMIN 3.2 gm/dL (3.5-5.0); CALCIUM 7.6 mg/dL (8.5-10.5); PHOSPHORUS 5.1 mg/dL (2.5-4.9)
[2016-08-23 09:00] LABS: ANION GAP 18.8 (10.0-19.0); CREATININE 11.1 mg/dL (0.5-1.1); POTASSIUM 5.8 mMol/L (3.7-5.1)
[2016-10-25] MEDS ORDERED: VITAMIN D-32000 UNI1 PO (15:08)
[2016-10-25] MEDS ORDERED: TYLENOL EXTRA500 MG PO (15:11)
== END 2016-08-23 13:08 | disposition disaster alternative care site (69) ==
LOC: GMED 07:28
PROVIDERS: Internal Medicine Nephrology
DX: I12.0 Hypertensive chronic kidney disease with stage 5 chronic kidney disease or end stage renal disease (principal); N18.6 End stage renal disease; E87.5 Hyperkalemia; E87.2 Acidosis; D64.9 Anemia, unspecified; Z99.2 Dependence on renal dialysis; Z87.19 Personal history of other diseases of the digestive system
CPT/HCPCS: G0257; J1644; Q4081

== ENCOUNTER 2016-08-26 07:22 | Emergency (ER) | payer MEDICAID ==
--- NOTE | ~2016-08-26 | ER ---
PATIENT'S NAME: NASIMA CHRISTIAN [facility] AGE: 65 Y [address] ROOM: [place] [address] LOCATION: [facility] ADMIT DATE: 08/26/2016 ER/Outpatient Report DISCHARGE DATE: 08/26/2016 FAMILY PHYSICIAN: PHYSICIAN, NO ATTENDING PHYSICIAN: Galdino Dc CHIEF COMPLAINT: Needs dialysis. HISTORY OF PRESENT ILLNESS: The patient presents again to the emergency department again for her usually scheduled dialysis. It has been unsuccessful thus far, evidently, to arrange outpatient dialysis for this young lady. She has no complaints as per her usual presentation. Her only request is that we refill one of her medications for her. No other acute issues at this time. PAST MEDICAL HISTORY: Documented on the record and reviewed by me. SOCIAL HISTORY: Documented on the record and reviewed by me. MEDICATIONS: Documented on the record and reviewed by me. ALLERGIES: DOCUMENTED ON THE RECORD AND REVIEWED BY ME. REVIEW OF SYSTEMS: All systems were reviewed and negative except as noted in HPI. PHYSICAL EXAMINATION: VITAL SIGNS: Blood pressure 155/72, pulse is 67, respiratory rate is 16, temperature 98, SpO2 is 98% on room air. GENERAL: An age-appropriate pleasant female, in no obvious pain or distress. NEUROLOGIC: Awake and alert. GCS appears to be 15. No focal deficits. No asymmetry. HEENT: Normal without gross abnormalities. CHEST/HEART: Regular rate and rhythm with no murmurs. LUNGS: Even, unlabored respirations. No rhonchi, wheezes, or rales. EXTREMITIES: Warm and well perfused. SKIN: Skin is clean, dry, and intact. LABORATORY DATA AND X-RAYS: PATIENT'S NAME: NASIMA CHRISTIAN [facility] AGE: 65 Y [address] ROOM: [place] [address] LOCATION: [facility] ADMIT DATE: 08/26/2016 ER/Outpatient Report DISCHARGE DATE: 08/26/2016 FAMILY PHYSICIAN: PHYSICIAN, JESS ATTENDING PHYSICIAN: Galdino Dc Labs and x-rays, per dialysis. IMPRESSION: Need for dialysis. EMERGENCY DEPARTMENT COURSE: The patient seen and evaluated. She was deemed appropriate to go to dialysis. She was sent to dialysis. She returned from dialysis. She was stable. She was given a prescription for her sodium bicarb pills with no changes and she was discharged in good condition. MD MEGAN CESPEDES/brook /[id number] d: 08/26/16 1425 t: 09/06/16 0653, OUTPATIENT REPORT
--- NOTE | ~2016-08-26 | CON ---
PATIENT'S NAME: NASIMA CHRISTIAN [facility] AGE: 65 Y [address] ROOM: [place] [address] LOCATION: ED ADMIT DATE: 08/26/2016 Consultation DISCHARGE DATE: FAMILY PHYSICIAN: PHYSICIAN, NO ATTENDING PHYSICIAN: Galdino Dc DATE OF CONSULTATION: 08/26/2016 REASON FOR CONSULTATION: ESRD and need for dialysis. REFERRING PHYSICIAN: ER Physician. HISTORY OF PRESENT ILLNESS: A 65-year-old female with history of hypertension, ESRD, no health insurance, comes to the ER, in for dialysis and is doing well. No other significant complaints since last seen. No significant family history. Last dialysis was on Tuesday as a tunnel dialysis catheter which is functioning well so far. She has been explained about going back to [place] to get dialysis done or to move to other states to get financial assistance, but she declined both offer. Denied any chest pain, shortness of breath, orthopnea, PND. No sign of fluid overload. No nausea, vomiting, or diarrhea. PAST MEDICAL HISTORY: Hypertension and end-stage renal disease. PAST SURGICAL HISTORY: Hernia repair 14 years ago and history of tunnel dialysis catheter placement. FAMILY HISTORY: Hypertension in mother and father. Kidney failure in mother. SOCIAL HISTORY: Used to live in [place]. Currently visiting her son here. Does not have any health insurance. No history of smoking, alcohol, or IV drug use. REVIEW OF SYSTEMS: GENERAL: No fever. No chills or rigor. HEENT: No sore throat. No sinus congestion. CVS: No chest pain. No exertional shortness of breath. No leg swelling. RESPIRATORY: No shortness of breath. No cough. No wheezing. GENITOURINARY: No pain with urination. No increased frequency. No nocturia. GASTROINTESTINAL: No abdominal pain. No abdominal distention. No nausea or vomiting. NEUROLOGIC: No weakness. No seizures. SKIN: No rash. No itching. ALLERGIES: No seasonal allergy. No hayfever. ENDOCRINE: No heat intolerance. No cold intolerance. PSYCHIATRIC: No sadness. No crying spells. No history of panic attack.PATIENT'S NAME: NASIMA CHRISTIAN [facility] AGE: 65 Y [address] ROOM: [place] [address] LOCATION: [facility] ADMIT DATE: 08/26/2016 Consultation DISCHARGE DATE: FAMILY PHYSICIAN: PHYSICIAN, NO ATTENDING PHYSICIAN: Galdino Dc PHYSICAL EXAMINATION: VITAL SIGNS: Blood pressure 100 to 110 over 50 to 60, pulse 70, respiratory rate 18, saturating 96-98% on room air. GENERAL: Not in apparent distress. HEAD: Moist mucous membranes. Bilateral PERRLA, EOMI. NECK: No JVD, thyromegaly or lymphadenopathy. CVS: S1 and S2 normal, regular rate and rhythm. No murmur, rub, gallop. CHEST: Bilateral air entry equal. No wheeze or rales. ABDOMEN: Soft, nontender, nondistended. Bowel sounds present. EXTREMITIES: No cyanosis, clubbing, jaundice. No dependent edema. MUSCULOSKELETAL: No limitation of range of motion. SKIN: No pallor, cyanosis, icterus. COSTUME MISTRESS: Alert and oriented x3. No gross findings. MEDICATIONS: As per chart. LAB: WBC 7.4, hemoglobin 10.8, platelet 272. Chemistry: Sodium 137, potassium 5.6, chloride 102, bicarbonate 23, BUN 72, creatinine 9.9, glucose 95, calcium 7.5, albumin 3.1, phosphorus 5.0. ASSESSMENT: 1. End-stage renal disease without any medical insurance and does not get regular hemodialysis, but shows up in the ER on Mondays and for hemodialysis. 2. Hyperkalemia, resolved. 3. Hypertension, well controlled. 4. Metabolic acidosis, improved. RECOMMENDATION AND PLAN: The patient has been seen and examined on dialysis, tolerating dialysis well. No new complaints. Negative fluid overload or any other uremic symptoms. Denied any chest discomfort. Tunnelled dialysis catheter in place and tolerating well and we are getting a blood flow rate within 400-500. Currently getting dialysis on 2 K bath for 4 hours with the goal of 1.5 L ultrafiltrate. Metabolic acidosis has improved significantly with bicarb supplementation. We will continue current bicarb supplementation for now. The patient has been educated about the need for regular hemodialysis and expected to go back to [place] to get regular hemodialysis and also explained the serious complications that may happen for noncompliance of hemodialysis including fluid overload, hyperkalemia, acidosis, or even , but the patient is declining the offer to going back to [place] or moving to other state to get assistance for dialysis regimen. Thank you for allowing me to participate in this patient's care. MD MAYRA LOO/brook /[id number] d: 08/26/16 1200 t: 08/31/16 1326, CONSULTATION REPORT
[2016-08-26 08:28] LABS: BASOPHIL % 0.5 %; EOSINOPHIL # 0.1 K/uL (0.0-0.5); EOSINOPHIL % 1.5 %; HEMATOCRIT 32.4 % (33.0-46.0); HEMOGLOBIN 10.8 g/dL (10.0-15.0); IMMATURE GRANULOCYTE % 0.3 %; LYMPHOCYTE # 1.5 K/uL (0.8-4.0); LYMPHOCYTE % 19.7 %; MCHC 33.3 gm/dL (32.0-36.5); MCV 96.1 fl (83.0-98.0); MONOCYTE # 0.6 K/uL (0.0-1.0); MONOCYTE % 8.6 %; MPV 9.2 fl (9.4-12.4); NEUTROPHIL # (ANC) 5.2 K/uL (1.8-7.8); NEUTROPHIL % 69.4 %; NRBC % 0 /100WBC (0-0.00); PLATELET COUNT 272 K/uL (150-450); RBC 3.37 M/uL (3.50-5.50); RDW-CV 13.7 % (11.9-14.6); WBC 7.4 K/uL (4.0-11.0)
[2016-08-26 08:39] LABS: ALBUMIN 3.1 gm/dL (3.5-5.0); ANION GAP 17.6 (10.0-19.0); CALCIUM 7.5 mg/dL (8.5-10.5); CREATININE 9.9 mg/dL (0.5-1.1); POTASSIUM 5.6 mMol/L (3.7-5.1)
[2016-10-25] MEDS ORDERED: VITAMIN D-32000 UNI1 PO (15:08)
[2016-10-25] MEDS ORDERED: TYLENOL EXTRA500 MG PO (15:11)
== END 2016-08-26 12:51 | disposition disaster alternative care site (69) ==
LOC: GMED 07:22
PROVIDERS: Internal Medicine Nephrology
DX: I12.0 Hypertensive chronic kidney disease with stage 5 chronic kidney disease or end stage renal disease (principal); N18.6 End stage renal disease; E87.5 Hyperkalemia; E87.2 Acidosis; Z79.899 Other long term (current) drug therapy; Z99.2 Dependence on renal dialysis
CPT/HCPCS: J1644; Q4081

== ENCOUNTER 2016-08-31 07:35 | Emergency (ER) | payer MEDICAID ==
--- NOTE | ~2016-08-31 | ER ---
PATIENT'S NAME: NASIMA CHRISTIAN [facility] AGE: 65 Y [address] ROOM: [place] [address] LOCATION: ED ADMIT DATE: 08/31/2016 ER/Outpatient Report DISCHARGE DATE: FAMILY PHYSICIAN: Lorenzo Gomez MD ATTENDING PHYSICIAN: Radha Giraldo Time of Arrival: 0735 hours. Time of Evaluation: 0735 hours. IDENTIFICATION: A 65-year-old female. CHIEF COMPLAINT: Need for dialysis. HISTORY OF PRESENT ILLNESS: The patient has been coming to the ER for dialysis. She presents today with no current complaints. She has no questions. No chest pain. No cough. No shortness of breath. No abdominal pain. No fever or chills. ALLERGIES: NO KNOWN DRUG ALLERGIES. CURRENT MEDICATIONS: 1. Calcium acetate 667 mg t.i.d. 2. Metoprolol 25 mg one-half tablet daily. 3. Sodium bicarb 10 t.i.d. MEDICAL PROBLEMS: Hypertension, end-stage renal disease, and anemia of chronic disease. PRIOR SURGERIES: Hernia repair 14 years ago and history of a tunneled dialysis catheter. FAMILY HISTORY: Mother with hypertension and kidney failure. SOCIAL HISTORY: The patient lives in [place]. She has been visiting her son in [place]. She does not have any health insurance and has been in the process of getting Medicare or Medicaid coverage. Tobacco use, denies. Alcohol use, denies. Drug use, denies. REVIEW OF SYSTEMS: All systems reviewed and negative other than what is noted in the HPI. PATIENT'S NAME: NASIMA CHRISTIAN [facility] AGE: 65 Y [address] ROOM: [place] [address] LOCATION: ED ADMIT DATE: 08/31/2016 ER/Outpatient Report DISCHARGE DATE: FAMILY PHYSICIAN: Lorenzo Gomez MD ATTENDING PHYSICIAN: Radha Giraldo PHYSICAL EXAMINATION: VITAL SIGNS: Weight 68.6 kg, blood pressure 158/76, pulse 67, respirations 14, temperature 98.5, and saturations 98% on room air. GENERAL: A pleasant female, in no acute distress. HEENT: Unremarkable. LUNGS: Clear to auscultation. HEART: Regular rate and rhythm. ABDOMEN: Soft, nondistended, and nontender. SKIN: [place], warm, and dry. No lesions or rashes noted. NEURO: No focal deficit. EXTREMITIES: No edema. IMPRESSION AND PLAN: 1. End-stage renal disease. The patient was deemed fit for dialysis and transported to the dialysis center. 2. Hypertension, well controlled. 3. Anemia of chronic disease. Hemoglobin today is 15.9, which is improved. Sodium 138, potassium 5.8, chloride 102, CO2 of 22, BUN 104, creatinine 11.7, and blood sugar 91. The patient returned from dialysis with no complaints and no recommendations per Dr. Curtis. Care Management has been addressing social issues and checking on insurance status and the patient will continue current medications. MD MARLO NATH/brook /[id number] d: 08/31/162217 t: 09/01/162053, OUTPATIENT REPORT
--- NOTE | ~2016-08-31 | CON ---
PATIENT'S NAME: [facility] AGE: 65 Y [address] ROOM: [place] [address] LOCATION: [facility]ED ADMIT DATE: 08/31/2016 Consultation DISCHARGE DATE: FAMILY PHYSICIAN: Lorenzo Gomez MD ATTENDING PHYSICIAN: Radha Giraldo DATE OF CONSULTATION: 08/31/2016 This is a [facility] nephrology consultation. REASON FOR CONSULTATION: End-stage renal disease, on hemodialysis therapy. HISTORY OF PRESENT ILLNESS: This is a 65-year-old female patient with a longstanding history of end-stage renal disease secondary to hypertension without any health insurance who comes to the emergency room for dialysis needs. The patient denies any complaints currently. No acute findings are noted. Last hemodialysis was last . She has had no trouble with her tunneled dialysis catheter which has been functioning okay thus far. The patient does deny any current attempts to go back to [place] for dialysis care and does not want to move to another state to get financial help. The patient denies any chest pain, shortness of breath, orthopnea, PND, or signs of fluid overload. No nausea, vomiting, or diarrhea is noted. Care Management has been contacted weekly on the patient's current insurance status. They are involved in her care at this time. PAST MEDICAL HISTORY: 1. End-stage renal disease. 2. Hypertension. PAST SURGICAL HISTORY: Positive for hernia repair 14 years ago as well as tunneled dialysis catheter placement. FAMILY HISTORY: Significant for hypertension in both mother and father as well as kidney failure in mother. SOCIAL HISTORY: The patient used to live in [place], currently visiting her son here, and does not have any health insurance. No history of smoking, alcohol use, or IV drug use. REVIEW OF SYSTEMS: GENERAL: Denies fever, chills, or night sweats. EYES: No double vision or blurred vision. NOSE: No epistaxis or rhinorrhea. MOUTH: No gingival bleeding. THROAT: No sore throat, hoarseness, or cough. RESPIRATORY: Denies wheezing or hemoptysis. CARDIOVASCULAR: Denies chest pain or palpitations. GASTROINTESTINAL: Denies nausea, vomiting, or diarrhea. GENITOURINARY: Denies frequency, urgency, or hesitancy. Continues to make urine despite hemodialysis. SKIN: No new rashes or lesions. ENDOCRINE: No heat or cold intolerance. PSYCHIATRIC: No history of depression or anxiety.PATIENT'S NAME: [facility] AGE: 65 Y [address] ROOM: [place], [place] [address] LOCATION: GMED ADMIT DATE: 08/31/2016 Consultation DISCHARGE DATE: FAMILY PHYSICIAN: Lorenzo Gomez MD ATTENDING PHYSICIAN: Radha Giraldo LABORATORY DATA: WBCs 4.7, hemoglobin 15.9, hematocrit 47.8, and platelets 168. Glucose 91, creatinine 11.7, sodium 138, potassium 5.8, chloride 102, CO2 is 22, and calcium 6.6. Albumin 2.9. Phosphorus is 7.8. PHYSICAL EXAMINATION: VITAL SIGNS: Blood pressure is 102/78, pulse is 68, temperature is 97.5, saturations are 97% on room air, and respirations are 12. GENERAL: On exam, this is a female who is in no acute distress. HEENT: Her head is normocephalic and atraumatic. Eyes: Pupils are equal and react briskly to light and accommodation. EOMs are intact. Nose: Midline. Mouth: No gingival bleeding. Throat: Without lymphadenopathy or carotid bruits. RESPIRATORY: Lung sounds are clear to auscultation anteriorly and posteriorly. CARDIOVASCULAR: Regular rate and rhythm with no appreciable murmurs, rubs, or thrills. ABDOMEN: Soft, nontender, and nondistended. Bowel sounds positive. EXTREMITIES: Trace lower extremity edema bilaterally. ASSESSMENT AND PLAN: End-stage renal disease, need for hemodialysis. The patient does not have any medical insurance and does not get regular hemodialysis; however, does show up in the emergency room twice a week. The patient will initiate hemodialysis here in Inpatient Dialysis, and we will monitor closely. We did contact family member caretaker Holly, for further evaluation of the patient's insurance status. We did, however, also make recommendations that the patient continue to pursue insurance and getting qualified for Medicaid in [place]. She is going to run on a 2K bath for 4 hours with a goal of 1.5 L of ultrafiltration. We will continue to work with the care management team for her outpatient dialysis setup as well as insurance coverage. We did discuss the patient's plan of care with the patient again. We discussed the risks of serious complication including hyperkalemia, acidosis, or even , but the patient is declining the option to go back to [place] or moving to another state to get some financial assistance with her dialysis regimen. This patient has been seen and assessed by Dr. Curtis. Her care is being conducted in consultation with Dr. Curtis as well as me. We will plan further recommendations as they are forthcoming. KWAKU ROCKWELL DNP, CONSTRUCTION EQUIPMENT TECHNICIAN FOR [facility] JAMES CURTIS MD ENS/modl /[id number] d: 08/31/16 1710 t: 09/06/16 1011, CONSULTATION REPORT
[2016-08-31 08:50] LABS: BASOPHIL % 0.4 %; EOSINOPHIL # 0.1 K/uL (0.0-0.5); EOSINOPHIL % 1.3 %; HEMOGLOBIN 15.9 g/dL (10.0-15.0); IMMATURE GRANULOCYTE % 0.2 %; LYMPHOCYTE # 0.9 K/uL (0.8-4.0); LYMPHOCYTE % 18.5 %; MCV 94.5 fl (83.0-98.0); MONOCYTE # 0.3 K/uL (0.0-1.0); MONOCYTE % 6.4 %; MPV 9.2 fl (9.4-12.4); NEUTROPHIL # (ANC) 3.5 K/uL (1.8-7.8); NEUTROPHIL % 73.2 %; NRBC % 0 /100WBC (0-0.00); RDW-CV 13.8 % (11.9-14.6); WBC 4.7 K/uL (4.0-11.0)
[2016-08-31 09:01] LABS: ALBUMIN 2.9 gm/dL (3.5-5.0); PHOSPHORUS 7.8 mg/dL (2.5-4.9)
[2016-08-31 09:03] LABS: MCH 31.4 pg (27.0-34.0); RBC 5.06 M/uL (3.50-5.50)
[2016-08-31 09:04] LABS: ANION GAP 19.8 (10.0-19.0); CALCIUM 6.6 mg/dL (8.5-10.5); CREATININE 11.7 mg/dL (0.5-1.1); HEMATOCRIT 47.8 % (33.0-46.0); MCHC 33.3 gm/dL (32.0-36.5); PLATELET COUNT 168 K/uL (150-450); POTASSIUM 5.8 mMol/L (3.7-5.1)
[2016-10-25] MEDS ORDERED: VITAMIN D-32000 UNI1 PO (15:08)
[2016-10-25] MEDS ORDERED: TYLENOL EXTRA500 MG PO (15:11)
== END 2016-08-31 13:15 | disposition disaster alternative care site (69) ==
LOC: GMED 07:35
PROVIDERS: Internal Medicine Nephrology
DX: I12.0 Hypertensive chronic kidney disease with stage 5 chronic kidney disease or end stage renal disease (principal); N18.6 End stage renal disease; D63.1 Anemia in chronic kidney disease; Z99.2 Dependence on renal dialysis; Z98.890 Other specified postprocedural states; Z79.899 Other long term (current) drug therapy
CPT/HCPCS: J1644; Q4081

== ENCOUNTER 2016-09-03 07:28 | Emergency (ER) | payer MEDICAID ==
--- NOTE | ~2016-09-03 | ER ---
PATIENT'S NAME: NASIMA CHRISTIAN [facility] AGE: 65 Y [address] ROOM: [place] [address] LOCATION: ED ADMIT DATE: 09/03/2016 ER/Outpatient Report DISCHARGE DATE: 09/03/2016 FAMILY PHYSICIAN: Lorenzo Gomez MD ATTENDING PHYSICIAN: Galdino Dc CHIEF COMPLAINT: Dialysis. HISTORY OF PRESENT ILLNESS: The patient presents for her usual scheduled dialysis with no new complaints. PAST MEDICAL HISTORY: Documented on the record and reviewed by me. SOCIAL HISTORY: Documented on the record and reviewed by me. MEDICATIONS: Documented on the record and reviewed by me. ALLERGIES: DOCUMENTED ON THE RECORD AND REVIEWED BY ME. REVIEW OF SYSTEMS: No pertinent review of systems is required for this visit. PHYSICAL EXAMINATION: VITAL SIGNS: Blood pressure 124/64, pulse 65, respiratory rate 16, temperature 97.8, SpO2 is 97% on room air. GENERAL: An age-appropriate female, happy, normal appearance, awake, and alert. HEENT: Normocephalic, atraumatic. Eyes are PERRL. Oropharynx is clear. NECK: Supple. Trachea is midline. CHEST: Heart is regular rate and rhythm with no murmurs. LUNGS: Clear to auscultation bilaterally with no rhonchi, wheezes, or rales. ABDOMEN: Soft, nontender, and nondistended. No rebound or guarding. EXTREMITIES: Grossly unremarkable. SKIN: Warm, dry, and intact. LABORATORY DATA AND X-RAYS: None per ER. CBC and CMS per dialysis. No acute abnormalities as dialysis will not intervene upon. IMPRESSION: PATIENT'S NAME: NASIMA CHRISTIAN [facility] AGE: 65 Y [address] ROOM: [place] [address] LOCATION: [facility]ED ADMIT DATE: 09/03/2016 ER/Outpatient Report DISCHARGE DATE: 09/03/2016 FAMILY PHYSICIAN: Lorenzo Gomez MD ATTENDING PHYSICIAN: Galdino Dc Dialysis. EMERGENCY DEPARTMENT COURSE: The patient was seen and evaluated. No apparent emergency medical conditions. Cleared for a previously scheduled dialysis. Dialysis completed. No acute issues. The patient was discharged after refill for her Lopressor as she has no current primary care physician. All questions were answered, and the patient was discharged. MD León CESPEDES /[id number] d: 09/03/16 2336 t: 09/06/16 0650, OUTPATIENT REPORT
[2016-09-03 08:59] LABS: BASOPHIL # 0.1 K/uL (0.0-0.2); BASOPHIL % 0.6 %; EOSINOPHIL # 0.1 K/uL (0.0-0.5); EOSINOPHIL % 1.3 %; HEMOGLOBIN 10.8 g/dL (10.0-15.0); IMMATURE GRANULOCYTE % 0.5 %; LYMPHOCYTE # 1.6 K/uL (0.8-4.0); LYMPHOCYTE % 20.7 %; MONOCYTE # 0.6 K/uL (0.0-1.0); MONOCYTE % 7.5 %; MPV 9.2 fl (9.4-12.4); NEUTROPHIL # (ANC) 5.5 K/uL (1.8-7.8); NEUTROPHIL % 69.4 %; NRBC % 0 /100WBC (0-0.00); RDW-CV 13.9 % (11.9-14.6); WBC 7.9 K/uL (4.0-11.0)
[2016-09-03 09:00] LABS: HEMATOCRIT 33.3 % (33.0-46.0); MCH 31.1 pg (27.0-34.0); MCHC 32.4 gm/dL (32.0-36.5); PLATELET COUNT 269 K/uL (150-450); RBC 3.47 M/uL (3.50-5.50)
[2016-09-03 09:10] LABS: ALBUMIN 3.1 gm/dL (3.5-5.0); CALCIUM 7.6 mg/dL (8.5-10.5); PHOSPHORUS 5.8 mg/dL (2.5-4.9)
[2016-09-03 09:14] LABS: ANION GAP 17.9 (10.0-19.0); POTASSIUM 5.9 mMol/L (3.7-5.1)
[2016-10-25] MEDS ORDERED: VITAMIN D-32000 UNI1 PO (15:08)
[2016-10-25] MEDS ORDERED: TYLENOL EXTRA500 MG PO (15:11)
== END 2016-09-03 12:50 | disposition disaster alternative care site (69) ==
LOC: GMED 07:28
PROVIDERS: Internal Medicine Nephrology
DX: I12.0 Hypertensive chronic kidney disease with stage 5 chronic kidney disease or end stage renal disease (principal); N18.6 End stage renal disease; Z99.2 Dependence on renal dialysis; Z98.890 Other specified postprocedural states; Z79.899 Other long term (current) drug therapy
CPT/HCPCS: J1644; Q4081

== ENCOUNTER 2016-09-06 07:26 | Emergency (ER) | payer MEDICAID ==
--- NOTE | ~2016-09-06 | CON ---
PATIENT'S NAME: NASIMA CHRISTIAN [facility] AGE: 65 Y [address] ROOM: [place] [address] LOCATION: [facility] ADMIT DATE: 09/06/2016 Consultation DISCHARGE DATE: FAMILY PHYSICIAN: Lorenzo Gomez MD ATTENDING PHYSICIAN: Galdino Dc DATE OF CONSULTATION: 09/06/2016 REASON FOR CONSULTATION: End-stage renal disease, on hemodialysis. HISTORY OF PRESENT ILLNESS: A 65-year-old female with history of hypertension, ESRD, no health insurance, comes to ER for dialysis need. The patient does not have health insurance and that is why could not be placed in outpatient dialysis unit; however, suddenly got her state Medicaid and will be placed in an outpatient dialysis unit from next Tuesday. No other significant complaints since last seen. Denied any significant chest pain, shortness of breath, orthopnea, PND, or bilateral lower extremity edema. No nausea, vomiting, or diarrhea. Compliant to the medication regimen. Blood pressure appears to be in goal. PAST MEDICAL HISTORY: Hypertension and end-stage renal disease. PAST SURGICAL HISTORY: Hernia repair 14 years ago and history of tunnelled dialysis catheter placement. FAMILY HISTORY: Hypertension in mother and father. Kidney failure in mother. SOCIAL HISTORY: She used to live in [place], currently visiting her son here. Does not have any health insurance, but got health insurance now and will be placed in outpatient dialysis unit from Tuesday. No history of smoking, alcohol, or IV drug abuse. REVIEW OF SYSTEMS: GENERAL: No fever. No chills or rigor. HEENT: No sore throat. No sinus congestion. CARDIOVASCULAR: No chest pain. No exertional shortness of breath. No leg swelling. RESPIRATORY: No shortness of breath. No cough. No wheezing. GASTROINTESTINAL: No abdominal pain. No abdominal distention. No nausea or vomiting. GENITOURINARY: No pain with urination. No increased frequency. No nocturia. NEUROLOGIC: No weakness. No seizures. SKIN: No rash. No itching. ALLERGIES: No seasonal allergy. No hayfever. ENDOCRINE: No heat intolerance. No cold intolerance. PSYCHIATRIC: No sadness. No crying spells. No history of panic attack.PATIENT'S NAME: NASIMA CHRISTIAN [facility] AGE: 65 Y [address] ROOM: [place], [place] [address] LOCATION: [facility] ADMIT DATE: 09/06/2016 Consultation DISCHARGE DATE: FAMILY PHYSICIAN: Lorenzo Gomez MD ATTENDING PHYSICIAN: Galdino Dc PHYSICAL EXAMINATION: VITAL SIGNS: Blood pressure 110 over 60s, pulse 70, respiratory rate 18, and saturation 96% to 98% on room air. GENERAL: Not in apparent distress. HEAD: Moist mucous membranes. Bilateral PERRLA, EOMI. NECK: No JVD, thyromegaly, or lymphadenopathy. CARDIOVASCULAR: S1 and S2 normal, regular rate and rhythm. No murmur, rub, or gallop. CHEST: Bilateral air entry equal. No wheeze or rales. ABDOMEN: Soft, nontender, nondistended. Bowel sounds present. EXTREMITIES: No cyanosis, clubbing, or jaundice. No dependent edema. MUSCULOSKELETAL: No limitation of range of motion. SKIN: No pallor, cyanosis, or icterus. CENTRAL NERVOUS SYSTEM: Alert and oriented x3. No gross findings. MEDICATIONS: As per chart. LABORATORY DATA: WBC count 8.1 and hemoglobin 10.4. Potassium 5.7, bicarbonate 23, BUN 58, and creatinine 8.4. ASSESSMENT: 1. End-stage renal disease, on chronic hemodialysis. Did not have any health insurance, that is why showed up in the ER for hemodialysis need, but has health insurance now and will be placed in an outpatient clinic shortly. 2. Hypertension, well controlled. 3. Metabolic acidosis, improved. 4. Anemia of chronic kidney disease, on erythropoietin. RECOMMENDATION AND PLAN: The patient is seen and examined on dialysis, tolerating dialysis well without any significant hemodynamic complication or neurological abnormality. The patient is getting dialysis on 2K bath for 4 hours with a goal ultrafiltrate of 1.5 L. We will give heparin 4000 unit bolus at the beginning of dialysis session to prevent systemic clotting. Regarding anemia of CKD, we will continue erythropoietin 3000 units on each hemodialysis. Metabolic acidosis has improved significantly with bicarbonate supplementation. We will stop the bicarbonate supplementation for now. Hypertension is well controlled, and continue current medical regimen. The patient has been explained about the need for regular hemodialysis. The patient has her health insurance and will be placed in an outpatient dialysis unit as per TTS schedule. First dialysis in the outpatient unit will be from Tuesday. Thank you for allowing me to participate in this patient's care. ONEILEKH MD MAYRA WILBURN/brook /[id number] d: 09/06/16 1331 t: 09/16/16 1601, CONSULTATION REPORT
--- NOTE | ~2016-09-06 | ER ---
PATIENT'S NAME: NASIMA GUADALUPE [facility] AGE: 65 Y [address] ROOM: [place] [address] LOCATION: [facility]ED ADMIT DATE: 09/06/2016 ER/Outpatient Report DISCHARGE DATE: 09/06/2016 FAMILY PHYSICIAN: Lorenzo Gomez MD ATTENDING PHYSICIAN: Galdino Dc CHIEF COMPLAINT: Dialysis. HISTORY OF PRESENT ILLNESS: Ms. Guadalupe presents for her routine scheduled dialysis today. She needs to come in through the ER for unknown reasons. She has no complaints. PAST MEDICAL HISTORY: As documented on the record and has been reviewed by me. SOCIAL HISTORY: As documented on the record and has been reviewed by me. MEDICATIONS: As documented on the record and have been reviewed by me. ALLERGIES: DOCUMENTED ON THE RECORD AND HAVE BEEN REVIEWED BY ME. REVIEW OF SYSTEMS: All systems were reviewed and negative. The patient has no complaints today. PHYSICAL EXAMINATION: VITAL SIGNS: Blood pressure 141/73, pulse 72, respiratory rate 20, temperature 96.8, SpO2 is 97% on room air. GENERAL: An age-appropriate female, upright, no obvious abnormalities. NEUROLOGIC: Awake and alert. GCS 15. HEENT: Normocephalic, atraumatic. Eyes are PERRL. Oropharynx is clear. NECK: Supple. Trachea is midline. CHEST: Heart is regular rate and rhythm. LUNGS: Clear to auscultation bilateral. No rhonchi, wheezes, or rales. EXTREMITIES: Warm and well perfused. No deformities or edema. SKIN: Clean, dry, and intact. ABDOMEN: Benign. BACK: Benign. LABORATORY DATA AND X-RAYS: None. PATIENT'S NAME: NASIMA GUADALUPE [facility] AGE: 65 Y [address] ROOM: [place] [address] LOCATION: [facility]ED ADMIT DATE: 09/06/2016 ER/Outpatient Report DISCHARGE DATE: 09/06/2016 FAMILY PHYSICIAN: Lorenzo Gomez MD ATTENDING PHYSICIAN: Galdino Dc IMPRESSION: Dialysis. EMERGENCY DEPARTMENT COURSE: The patient was cleared for dialysis. She went to dialysis. She received her dialysis. She returned and was discharged to home. MD MEGAN CESPEDES/brook /[id number] d: 09/06/161941 t: 09/27/16 1653, OUTPATIENT REPORT
[2016-09-06 08:14] LABS: BASOPHIL # 0.1 K/uL (0.0-0.2); BASOPHIL % 0.6 %; EOSINOPHIL # 0.1 K/uL (0.0-0.5); EOSINOPHIL % 1.6 %; HEMATOCRIT 32.4 % (33.0-46.0); HEMOGLOBIN 10.4 g/dL (10.0-15.0); IMMATURE GRANULOCYTE % 0.4 %; LYMPHOCYTE # 1.6 K/uL (0.8-4.0); MCH 31.2 pg (27.0-34.0); MCHC 32.1 gm/dL (32.0-36.5); MCV 97.3 fl (83.0-98.0); MONOCYTE # 0.7 K/uL (0.0-1.0); MONOCYTE % 8.7 %; MPV 8.9 fl (9.4-12.4); NEUTROPHIL # (ANC) 5.5 K/uL (1.8-7.8); NEUTROPHIL % 68.7 %; NRBC % 0 /100WBC (0-0.00); PLATELET COUNT 258 K/uL (150-450); RBC 3.33 M/uL (3.50-5.50); WBC 8.1 K/uL (4.0-11.0)
[2016-09-06 08:27] LABS: ALBUMIN 2.9 gm/dL (3.5-5.0); ANION GAP 17.7 (10.0-19.0); CALCIUM 7.1 mg/dL (8.5-10.5); CREATININE 8.4 mg/dL (0.5-1.1); PHOSPHORUS 5.7 mg/dL (2.5-4.9); POTASSIUM 5.7 mMol/L (3.7-5.1)
[2016-10-25] MEDS ORDERED: VITAMIN D-32000 UNI1 PO (15:08)
[2016-10-25] MEDS ORDERED: TYLENOL EXTRA500 MG PO (15:11)
== END 2016-09-06 12:56 | disposition disaster alternative care site (69) ==
LOC: GMED 07:26
PROVIDERS: Internal Medicine Nephrology
DX: I12.0 Hypertensive chronic kidney disease with stage 5 chronic kidney disease or end stage renal disease (principal); N18.6 End stage renal disease; D63.1 Anemia in chronic kidney disease; E87.2 Acidosis; Z98.890 Other specified postprocedural states; Z99.2 Dependence on renal dialysis; Z79.899 Other long term (current) drug therapy
CPT/HCPCS: J1644; Q4081

== ENCOUNTER 2016-09-09 07:22 | Emergency (ER) | payer MEDICAID ==
--- NOTE | ~2016-09-09 | CON ---
PATIENT'S NAME: [facility] AGE: 65 Y [address] ROOM: [place] [address] LOCATION: [facility]ED ADMIT DATE: 09/09/2016 Consultation DISCHARGE DATE: 09/09/2016 FAMILY PHYSICIAN: Lorenzo Gomez MD ATTENDING PHYSICIAN: Mohsen Díaz DATE OF CONSULTATION: 09/09/2016 REFERRING PHYSICIAN: Dr. Giraldo REASON FOR CONSULTATION: End-stage renal disease, need for hemodialysis. HISTORY OF PRESENT ILLNESS: A 65-year-old female with longstanding history of hypertension and end-stage renal disease secondary to hypertension, without health insurance, comes to the emergency room for dialysis needs. On routine lab test, the patient was found to have hyperkalemia of 6.3. She denies any symptoms currently. Denied any shortness of breath, chest pain, orthopnea, or PND. Last dialysis was on Tuesday. Notably, she did not have any health insurance, could not be placed in outpatient dialysis, and shows up in the ER for dialysis needs on Mondays and . However, currently, she now has state Medicaid and will be placed in our [facility] dialysis unit for outpatient dialysis from Tuesday. No nausea, vomiting, or diarrhea. The patient denied taking potassium-rich diet including tomato, potato, onion, banana, or orange. The patient is seen and examined on dialysis, tolerating HD well without any significant abnormality or neurologic complication. PAST MEDICAL HISTORY: 1. End-stage renal disease. 2. Hypertension. PAST SURGICAL HISTORY: Hernia repair 14 years ago as well as tunneled dialysis catheter placement. FAMILY HISTORY: Significant for hypertension in both mother and father as well as kidney failure in mother. SOCIAL HISTORY: She lives in [place] and is visiting her son here. Does not have any health insurance. No history of smoking, alcohol, or IV drug use. REVIEW OF SYSTEMS: GENERAL: No fever. No chills or rigor. HEENT: No sore throat. No sinus congestion. CARDIOVASCULAR: No chest pain. No exertional shortness of breath. No leg swelling. RESPIRATORY: No shortness of breath. No cough. No wheezing. GENITOURINARY: No pain with urination. No increased frequency. No nocturia. GASTROINTESTINAL: No abdominal pain. No abdominal distention. No nausea or vomiting. NEUROLOGIC: No weakness. No seizures. SKIN: No rash. No itching. ALLERGIES: No seasonal allergy. No hayfever. ENDOCRINE: No heat intolerance. No cold intolerance. PSYCHIATRIC: No sadness. No crying spells. No history of panic attack.PATIENT'S NAME: [facility] AGE: 65 Y [address] ROOM: [place] [address] LOCATION: ED ADMIT DATE: 09/09/2016 Consultation DISCHARGE DATE: 09/09/2016 FAMILY PHYSICIAN: Lorenzo Gomez MD ATTENDING PHYSICIAN: Mohsen Díaz LABORATORY STUDIES: Hemoglobin 11.5, WBC 7.6, and platelets 218. Chemistry: Serum sodium 138, potassium 6.5, chloride 106, bicarbonate 24, BUN 59, creatinine 8.2, glucose 90, calcium 7.4. Phosphorus 5.4. Albumin 2.9. PHYSICAL EXAMINATION: VITAL SIGNS: Blood pressure 100 over 70s, pulse 70, respiratory rate 97.5, saturation 96% to 98% on room air, and respiratory rate 18. GENERAL: Not in apparent distress. HEAD: Moist mucous membranes. Bilateral PERRLA, EOMI. NECK: No JVD, thyromegaly, or lymphadenopathy. CARDIOVASCULAR: S1 and S2 normal, regular rate and rhythm. No murmur, rub, or gallop. CHEST: Bilateral air entry equal. No wheeze or rales. ABDOMEN: Soft, nontender, and nondistended. Bowel sounds present. EXTREMITIES: No cyanosis, clubbing, or jaundice. No dependent edema. MUSCULOSKELETAL: No limitation of range of motion. SKIN: No pallor, cyanosis, or icterus. CENTRAL NERVOUS SYSTEM: Alert and oriented x3. No gross findings. ASSESSMENT AND PLAN: 1. End-stage renal disease, without medical insurance, shows up for hemodialysis in the ER on Mondays and , does not get regular hemodialysis. 2. Hyperkalemia. 3. Hypertension. 4. Metabolic acidosis. RECOMMENDATION AND PLAN: 1. The patient is seen and examined on dialysis, tolerating dialysis well. No significant fluid overload or any uremic symptoms. Tunnelled dialysis catheter in place. Getting a blood flow rate of 400 to 500 without much problem. Today, dialysis on 2K bath for 4 hours with a goal ultrafiltrate of 1.5 to 2 L. 2. Hyperkalemia, I believe, possibly related to dietary noncompliance. Potassium is 6.5 today. Will be getting dialysis on 2K bath. No need for potassium check after dialysis because it will take at least a couple of hours for equilibration. The patient has planned to get dialysis again on Tuesday in the outpatient dialysis unit as the patient has received state Medicaid at this point. 3. Regarding metabolic acidosis, this has improved significantly. We have stopped the bicarbonate supplementation. 4. Hypertension is well controlled on current medication regimen. We will continue the same antihypertensive therapy for now. 5. Anemia of chronic disease. The patient is getting EPO 3000 units on each dialysis. We will continue that for now as well. Thank you for allowing me to participate in this patient's care. HISEKH JAMES NAILS MD /modl /[id number] d: 09/09/16 1833 t: 09/16/16 1601, CONSULTATION REPORT
--- NOTE | ~2016-09-09 | ER ---
[facility]GE[facility] 65 Y [address] ROOM: [place] [address] LOCATION: ED ADMIT DATE: 09/09/2016 ER/Outpatient Report DISCHARGE DATE: 09/09/2016 FAMILY PHYSICIAN: Lorenzo Gomez MD ATTENDING PHYSICIAN: Mohsen Díaz TIME OF ARRIVAL: 0722 hours. TIME OF EVALUATION: 0724 hours. CHIEF COMPLAINT: Need for dialysis. HISTORY OF PRESENT ILLNESS: The patient is a 65-year-old female who presents to the emergency department today with a chief complaint of need for dialysis. She has been coming to the emergency department for dialysis. She has end-stage renal disease, without health insurance, and is visiting from [place]. She denies any chest pain. No shortness of breath. No fevers or chills. No nausea or vomiting. No diarrhea or constipation. No other complaints at this time. PAST MEDICAL HISTORY: Hypertension; end-stage renal disease, on hemodialysis Tuesday and . PAST SURGICAL HISTORY: Hernia repair and tunnelled dialysis catheter. FAMILY HISTORY: Hypertension and kidney disease. SOCIAL HISTORY: The patient lives in [place] and is visiting her son in [place]. Denies any tobacco, alcohol, or illicit drug use. ALLERGIES: NO KNOWN DRUG ALLERGIES. MEDICATIONS: Please see list. PRIMARY CARE DOCTOR: None. PATIENT'S NAME: NASIMA CHRISTIAN [facility] AGE: 65 Y [address] ROOM: [place] [address] LOCATION: [facility] ADMIT DATE: 09/09/2016 ER/Outpatient Report DISCHARGE DATE: 09/09/2016 FAMILY PHYSICIAN: Lorenzo Gomez MD ATTENDING PHYSICIAN: Mohsen Díaz REVIEW OF SYSTEMS: All systems are reviewed by myself and are negative with the exception of those discussed in the HPI and Past Medical History. PHYSICAL EXAMINATION: VITAL SIGNS: Temperature 97.1. Blood pressure 162/78, pulse 72, respiratory rate 20, and pulse oximetry 98% on room air. GENERAL: The patient is a 65-year-old female who appears stated age, in no acute distress. HEENT: Normocephalic, atraumatic. Mucous membranes are moist. NECK: Supple. There is no nuchal rigidity. CARDIOVASCULAR: Regular rate and rhythm. No murmurs, rubs, or gallops. LUNGS: Clear to auscultation bilaterally. No wheezes, rales, or rhonchi. ABDOMEN: Soft, nontender, and nondistended. No rebound, rigidity, or guarding. MUSCULOSKELETAL: The patient moves all 4 extremities and ambulates with a steady gait. SKIN: Warm and dry. No rashes or lesions noted. LABORATORY AND X-RAY DATA: Labs will be drawn at dialysis. IMPRESSION: 1. End-stage renal disease, requiring dialysis. 2. Initial visit. EMERGENCY DEPARTMENT COURSE: The patient was brought back to the examination room. Seen and evaluated by myself. History and physical performed as described above. The patient will proceed to dialysis. DISPOSITION: The patient is discharged to home in good condition. DO ANDRES TREJO/brook /[id number] d: 09/09/16 1409 t: 09/09/16 1448, OUTPATIENT REPORT
[2016-09-09 08:22] LABS: BASOPHIL # 0.1 K/uL (0.0-0.2); BASOPHIL % 0.7 %; EOSINOPHIL # 0.1 K/uL (0.0-0.5); EOSINOPHIL % 1.5 %; HEMATOCRIT 34.9 % (33.0-46.0); HEMOGLOBIN 11.5 g/dL (10.0-15.0); IMMATURE GRANULOCYTE % 0.5 %; LYMPHOCYTE # 1.2 K/uL (0.8-4.0); LYMPHOCYTE % 15.2 %; MCH 31.8 pg (27.0-34.0); MCV 96.4 fl (83.0-98.0); MONOCYTE # 0.5 K/uL (0.0-1.0); MONOCYTE % 7.1 %; MPV 8.8 fl (9.4-12.4); NEUTROPHIL # (ANC) 5.7 K/uL (1.8-7.8); NRBC % 0 /100WBC (0-0.00); PLATELET COUNT 218 K/uL (150-450); RBC 3.62 M/uL (3.50-5.50); WBC 7.6 K/uL (4.0-11.0)
[2016-09-09 08:38] LABS: ALBUMIN 2.9 gm/dL (3.5-5.0); PHOSPHORUS 5.4 mg/dL (2.5-4.9)
[2016-09-09 08:56] LABS: ANION GAP 14.5 (10.0-19.0); CALCIUM 7.4 mg/dL (8.5-10.5); CREATININE 8.2 mg/dL (0.5-1.1); POTASSIUM 6.5 mMol/L (3.7-5.1)
[2016-10-25] MEDS ORDERED: VITAMIN D-32000 UNI1 PO (15:08)
[2016-10-25] MEDS ORDERED: TYLENOL EXTRA500 MG PO (15:11)
== END 2016-09-09 12:40 | disposition disaster alternative care site (69) ==
LOC: GMED 07:22
PROVIDERS: Internal Medicine Nephrology
DX: I12.0 Hypertensive chronic kidney disease with stage 5 chronic kidney disease or end stage renal disease (principal); N18.6 End stage renal disease; E87.5 Hyperkalemia; E87.2 Acidosis; D63.1 Anemia in chronic kidney disease; Z99.2 Dependence on renal dialysis; Z98.890 Other specified postprocedural states
CPT/HCPCS: J1644; Q4081

== ENCOUNTER 2016-10-27 08:59 | Day surgery (SDC) | payer MEDICAID, OTHER ==
[~2016-10-27] VITALS: Ht 144.8 cm; Wt 69.8 kg
--- NOTE | ~2016-10-27 | OR ---
PATIENT'S NAME: [facility] AGE: 65 Y [address] ROOM: [place], [place] [address] LOCATION: [facility] [place] ADMIT DATE: 10/27/2016 OR/Procedure Report DISCHARGE DATE: FAMILY PHYSICIAN: Lorenzo Gomez MD ATTENDING PHYSICIAN: CALEB TAVARES SURGEON: Caleb Tavares MD CHILDCARE ADMINISTRATOR: DATE OF PROCEDURE: 10/27/2016 PREOPERATIVE DIAGNOSIS: End-stage renal disease. POSTOPERATIVE DIAGNOSIS: End-stage renal disease. PROCEDURE: Left arm brachiocephalic fistula. EXPERIMENTAL [employer]CH[employer]IC [employer]: Nurse practitioner, Yelitza Hernandez. She provided retraction, helped with anastomosis as well as wound closure. ANESTHESIA: General. ESTIMATED BLOOD LOSS: 5 mL. OPERATIVE FINDINGS: Good thrill in the brachiocephalic fistula. Strong radial and ulnar signal at the end of the case. DESCRIPTION OF PROCEDURE: The patient was brought to the operating room and placed supine on the operative table, prepped and draped in a sterile manner. Preoperative time-out was performed. The patient received preoperative antibiotics. We made a standard incision 2 cm proximal to the antecubital fossa. Dissected down to the fascia. Incised the fascia in a longitudinal manner. Dissected out the brachial artery in a 360-degree fashion. We performed a similar maneuver with the cephalic vein. We then ligated and transected it distally. We gave 5000 units of heparin. Clamped proximally and distally the artery. Made arteriotomy size of 4 mm and did a standard 6-0 Prolene anastomosis from the vein to the artery. We removed the clamps. There was excellent flow into the fistula which was confirmed using Doppler. There was a strong radial and ulnar signal. Heparin was reversed with protamine. Thrombin was used locally in the wound. Deep layers were closed with 2-0 and 3-0 Vicryls. Skin was closed with running 4-0 Monocryl. The patient tolerated the procedure well and was transferred to the recovery room and home later that day. PATIENT'S NAME: [facility] AGE: 65 Y [address] ROOM: [place], [place] [address] LOCATION: [facility] [place] ADMIT DATE: 10/27/2016 OR/Procedure Report DISCHARGE DATE: FAMILY PHYSICIAN: Lorenzo Gomez MD ATTENDING PHYSICIAN: CALEB TAVARES MD FKM/modl /[id number] d: 10/27/162141 t: 10/31/16 1627, OPERATIVE SUMMARY
[~2016-10-27 08:59] MED LIST changes: +TYLENOL EXTRA500 MG PO; +VITAMIN D-32000 UNI1 PO
[2016-10-27 10:00] LABS: BASOPHIL % 0.4 %; EOSINOPHIL # 0.1 K/uL (0.0-0.5); HEMATOCRIT 34.3 % (33.0-46.0); HEMOGLOBIN 11.4 g/dL (10.0-15.0); IMMATURE GRANULOCYTE % 0.3 %; LYMPHOCYTE # 1.6 K/uL (0.8-4.0); LYMPHOCYTE % 23.5 %; MCH 32.5 pg (27.0-34.0); MCHC 33.2 gm/dL (32.0-36.5); MCV 97.7 fl (83.0-98.0); MONOCYTE # 0.7 K/uL (0.0-1.0); MONOCYTE % 10.4 %; MPV 8.8 fl (9.4-12.4); NEUTROPHIL # (ANC) 4.4 K/uL (1.8-7.8); NEUTROPHIL % 64.4 %; NRBC % 0 /100WBC (0-0.00); PLATELET COUNT 227 K/uL (150-450); RBC 3.51 M/uL (3.50-5.50); RDW-CV 15.6 % (11.9-14.6); WBC 6.8 K/uL (4.0-11.0)
[2016-10-27 10:24] LABS: ALBUMIN 3.5 gm/dL (3.5-5.0); ANION GAP 12.5 (10.0-19.0); CALCIUM 8.2 mg/dL (8.5-10.5); POTASSIUM 5.5 mMol/L (3.7-5.1); TOTAL PROTEIN 7.6 g/dL (6.0-8.4)
[2016-10-27 10:26] LABS: CREATININE 5.2 mg/dL (0.5-1.1); TOTAL BILIRUBIN 0.5 mg/dL (0.0-1.5)
[2016-10-27] MEDS ORDERED: NORCO 5-325 TA1 EACH PO (13:47)
== END 2016-10-27 14:35 | disposition disaster alternative care site (69) ==
LOC: GSDC 08:59
PROVIDERS: Surgery Vascular Surgery
PROC: 03180ZD Bypass Left Brachial Artery to Upper Arm Vein, Open Approach (ICD-10-PCS; principal; 2016-10-27)
DX: I12.0 Hypertensive chronic kidney disease with stage 5 chronic kidney disease or end stage renal disease (principal); N18.6 End stage renal disease; F32.9 Major depressive disorder, single episode, unspecified; D63.1 Anemia in chronic kidney disease; Z98.890 Other specified postprocedural states; Z79.899 Other long term (current) drug therapy
CPT/HCPCS: J0690; J1100; J1644; J2001; J2405; J2720; J7030